=== PATIENT | female | born 1960 | race Caucasian/White ===

== ENCOUNTER 2025-02-03 10:16 | Observation (INO) ==
[2025-02-03 10:51] VITALS: BMI 31.7
--- NOTE | 2025-02-03 11:26 | DR.AMS ---
HPI Time Seen Time Seen by Provider: 02/03/25 11:23 PCP Primary Care Physician: Suman Complaint Cheif Complaint Doctors Comments: 64 yo F, hx of metastatic breast CA, c/o increasing weakness and confusion over the past couple weeks. Mother states that pt began having auditory hallucinations today. Pt c/o ongoing pain from her metastatic cancer which has spread from her breasts to her bones. Denies fever. Admits to increased urinary frequency and incontinence over the past 2 wk. Denies other complaints. Chief Complaint:: On arrival to triage, pt is emotional and crying, she presents in WC but is able to stand onto scale from WC. Pt c/o "somebody trying to do something to me without my permission; I believe my mom and my son are trying to have me put in a mental institution"; "my in August". Pt states "I am having nightmares; when I woke up this morning I thought it was tomorrow". She c/o epigastric and CP when she is eating/drinking. She states she has chronic bilat hip and low back pain r/t bone CA. Pt does have some difficulty finding her words when she is responding to questions. Pt mother states pt is "confused, incoherent, not following directions and is hearing voices". Pt denies she is hearing voices or having visual hallucinations, denies she feels suicidal or homicidal. Pt states she feels weak and it is causing her to "fall alot". Pt and mother state that pt is compliant with her medications Self Treatment fo Chief Complaint: Mother states she called PCP ofc and was advised to come to ER COVID-19 Coronavirus risk:travel/contact w/high risk person: No Has patient experienced Coronavirus symptoms: No Source History Provided: Patient and Parent Mode of Arrival Mode of Arrival: Wheelchair Timing Onset of Chief Complaint: 01/31/25 PMH PMH Past Medical History: Yes Past Medical History: Anxiety, Depression, Dyslipidemia and Hypertension Past Medical History Comment: bone cancer, seasonal allergies, fibromyalgia, OAB Past Surgical History: Yes Surgical History: Mastectomy and Ortho Surgery Past Surgical History Comment: bilat mastectomy Family History History of Family Medical Conditions: Yes Family Medical History: Cancer Social History Does any household member use tobacco: No Alcohol Use: Occasionally Do you use any recreational Drugs:: No Lives With: Family Lives Where: Home Travel Risk Coronavirus risk:travel/contact w/high risk person: No Has patient experienced Coronavirus symptoms: No Infectious screening In the last 2 months have you had wt loss of >10#?: NO Have you had fever, night sweats or hemotysis?: No Have you traveled outside the country in the last 6 months?: No Isolation: Standard ROS Review of Systems Constitutional: Weakness and Other (confusion, urinary incontinence) All Other Systems: Reviewed and Negative PE Vitals Vital Signs: Temp Pulse Resp BP Pulse Ox O2 Del Method 02/03/25 17:01 95 H 99 02/03/25 17:01 128/61 02/03/25 17:00 95 H 97 02/03/25 16:45 95 H 98 02/03/25 16:30 93 H 98 02/03/25 16:30 134/60 02/03/25 16:15 91 H 97 02/03/25 16:00 92 H 99 02/03/25 16:00 133/64 02/03/25 15:52 96 H 100 02/03/25 15:52 143/82 02/03/25 15:51 100 H 98 02/03/25 15:00 91 H 12 96 02/03/25 15:00 136/63 02/03/25 14:45 93 H 16 97 02/03/25 14:31 107/55 02/03/25 14:31 93 H 31 H 97 02/03/25 14:30 91 H 15 97 02/03/25 14:15 102 H 23 100 02/03/25 14:00 98 H 15 95 02/03/25 14:00 171/72 02/03/25 13:45 98 H 15 95 02/03/25 13:30 97 H 16 96 02/03/25 13:30 161/70 02/03/25 13:15 97 H 27 H 99 02/03/25 13:00 102 H 20 89 L 02/03/25 13:00 123/59 02/03/25 12:45 104 H 19 97 02/03/25 12:34 95 H 23 02/03/25 12:34 130/59 02/03/25 12:31 100 H 31 H 02/03/25 12:30 99 H 22 95 02/03/25 12:15 96 H 14 95 02/03/25 12:01 102 H 17 96 11/12/25 12:01 147/65 02/03/25 12:00 103 H 17 95 02/03/25 11:52 119 H 99 02/03/25 11:30 105 H 95 02/03/25 11:30 116/59 02/03/25 11:15 111 H 97 02/03/25 11:04 110 H 95 02/03/25 11:04 140/62 02/03/25 11:01 110 H 95 02/03/25 10:21 98.8 F 126 H 20 140/85 97 Room Air General Limitations: Language Barrier General Appearance: Alert Head Head Exam: Normal Inspection Eyes Eye exam: Normal Appearance ENT ENT Exam: Normal Exam External Ear Exam: Normal External Inspection Nose Exam: Normal Nose Exam Mouth Exam: Normal Inspection Throat Exam: Normal Inspection Neck Neck Exam: Normal Inspection Chest Chest Inspection: Normal Inspection Respiratory Respiratory Exam: Normal Lung Sounds Bilat Cardiovascular Cardiovascular Exam: Regular Rate and Normal Rhythm Abdominal Exam Abdominal Exam: Normal Inspection, Normal Bowel Sounds and Soft Extremities Extremities Exam: Normal Inspection Back Back Exam: Normal Inspection Neurological Neurological Exam: Alert and Oriented X3 Psychological Psychiatric Exam: Normal Affect and Normal Mood Skin Skin Exam: Warm, Dry, Intact and Normal Color ROR Labs Reviewed 02/03/25 11:37 02/03/25 11:37 Laboratory: WBC 7.7 X10^3/uL (3.6-10.0) 02/03/25 11:37 RBC 3.27 X10^6/uL (3.5-5.4) L 02/03/25 11:37 Hgb 10.5 g/dL (12.0-16.0) L 02/03/25 11:37 Hct 31.6 % (36.0-47.0) L 02/03/25 11:37 MCV 96.4 fL (80.0-100.0) 02/03/25 11:37 MCH 32.1 pg (27.0-34.0) 02/03/25 11:37 MCHC 33.3 g/dL (33.0-35.0) 02/03/25 11:37 RDW 15.5 % (11.6-16.5) 02/03/25 11:37 Plt Count 156 X10^3/uL (150.0-450.0) 02/03/25 11:37 MPV 8.5 fL (7.4-11.0) 02/03/25 11:37 Neut % (Auto) 81.9 % (42.0-75.0) H 02/03/25 11:37 Lymph % (Auto) 6.4 % (21.0-51.0) L 02/03/25 11:37 [place] % (Auto) 7.3 % (0.0-13.0) 02/03/25 11:37 Eos % (Auto) 4.0 % (0.9-2.9) H 02/03/25 11:37 Baso % (Auto) 0.4 % (0.2-1.0) 02/03/25 11:37 Neut # (Auto) 6.3 x10^3/uL (2.2-4.8) H 02/03/25 11:37 Lymph # (Auto) 0.5 X10^3/uL (1.3-2.9) L 02/03/25 11:37 [place] # (Auto) 0.6 x10^3/uL (0.3-0.8) 02/03/25 11:37 Eos # (Auto) 0.3 x10^3/uL (0.0-0.2) H 02/03/25 11:37 Baso # (Auto) 0.0 X10^3/uL (0.0-0.1) 02/03/25 11:37 Absolute Nucleated RBC 0.1 /100WBC 02/03/25 11:37 PT 15.0 SECONDS (11.8-14.3) 02/03/25 11:37 INR Target Range - 02/03/25 11:37 INR 1.17 (0.8-1.3) 02/03/25 11:37 APTT 37.3 SECONDS (22.9-36.5) H 02/03/25 11:37 PTT Comment - 02/03/25 11:37 Sodium 142 mmol/L (136-145) 02/03/25 11:37 Corrected Sodium TNP 02/03/25 11:37 Potassium 2.9 mmol/L (3.5-5.1) L* 02/03/25 11:37 Chloride 107 mmol/L (98-107) 02/03/25 11:37 Carbon Dioxide 25.9 mmol/L (21-32) 02/03/25 11:37 BUN 16 mg/dL (7-18) 02/03/25 11:37 Creatinine 2.02 mg/dL (0.55-1.02) H 02/03/25 11:37 Est GFR (MDRD) Af Amer 32 (>60) L 02/03/25 11:37 Est GFR (MDRD) Non-Af 26 (>60) L 02/03/25 11:37 Glucose 83 mg/dL (65-99) 02/03/25 11:37 Lactic Acid 0.8 mmol/L (0.4-2.0) 02/03/25 11:37 Calcium 8.7 mg/dL (8.5-10.1) 02/03/25 11:37 Corrected Calcium 9.7 mg/dL (8.5-10.1) 02/03/25 11:37 Magnesium 1.8 mg/dL (2.0-2.9) L 02/03/25 11:37 Total Bilirubin 1.00 mg/dL (0.2-1.0) 02/03/25 11:37 AST 35 Units/L (15-37) 02/03/25 11:37 ALT 20 Units/L (12-78) 02/03/25 11:37 Alkaline Phosphatase 87 Units/L (46-116) 02/03/25 11:37 Creatine Kinase 321 Units/L (26-192) H 02/03/25 11:37 Troponin I High Sens 6.3 ng/L (4.0-60.0) 02/03/25 11:37 Total Protein 6.6 g/dL (6.4-8.2) 02/03/25 11:37 Albumin 2.7 g/dL (3.4-5.0) L 02/03/25 11:37 Globulin 3.9 g/dL (2.5-4.5) 02/03/25 11:37 Albumin/Globulin Ratio 0.7 Ratio (1.1-2.1) L 02/03/25 11:37 Specimen Type Clean catch urine 02/03/25 11:54 Urine Color Pale yellow (YELLOW) 02/03/25 11:54 Urine Appearance Clear (CLEAR) 02/03/25 11:54 Urine pH 7.0 (5.0 - 8.0) 02/03/25 11:54 Ur Specific [place] 1.015 (1.000-1.030) 02/03/25 11:54 Urine Protein 3+ (NEGATIVE) 02/03/25 11:54 Urine Glucose (UA) 1+ (NEGATIVE) 02/03/25 11:54 Urine Ketones 2+ (NEGATIVE) 02/03/25 11:54 Urine Blood 4+ (NEGATIVE) 02/03/25 11:54 Urine Nitrite Negative (NEGATIVE) 02/03/25 11:54 Urine Bilirubin Negative (NEGATIVE) 02/03/25 11:54 Urine Urobilinogen Normal (NORMAL) 02/03/25 11:54 Ur Leukocyte Esterase Negative (NEGATIVE) 02/03/25 11:54 Urine RBC 0-2 /HPF (0-3) 02/03/25 11:54 Urine WBC 0-2 /HPF (0-5) 02/03/25 11:54 Ur Squamous Epith Cells Few /HPF (NEGATIVE) 02/03/25 11:54 Urine Bacteria Trace /HPF (NEGATIVE) 02/03/25 11:54 Urine Mucus Rare /HPF (NEGATIVE) 02/03/25 11:54 Ur Culture Indicated? No/not indicated 02/03/25 11:54 SARS-CoV-2 (PCR) Negative (NEGATIVE) 02/03/25 11:28 Influenza Type A (PCR) Negative (NEGATIVE) 02/03/25 11:28 Influenza Type B (PCR) Negative (NEGATIVE) 02/03/25 11:28 RSV (PCR) Negative (NEGATIVE) 02/03/25 11:28 Opioid Opioid Risk Tool Age (Ye box if 16-45): No History of Preadolescent Sexual Abuse: No Total: 0 Total Score Risk Category: Low Risk Copyright: Lei CARROLL predicting aberrant behaviors Discharge Plan Diagnosis Discharge Problem: PAUL (acute kidney injury), Acute dehydration, Acute hypokalemia, CAP (community acquired pneumonia), Breast cancer metastasized to bone, Hematuria, Biliary colic, Esophagitis Discharge Plan Patient Disposition: 09 ADMITTED INPATIENT Condition: Stable Prescriptions: No Action tizanidine 4 mg tablet 4 mg PO BID lorazepam 1 mg tablet 1 tab PO BID duloxetine 60 mg capsule,delayed release(DR/EC) 120 mg PO QDAY celecoxib 200 mg capsule 200 mg PO BID doxycycline hyclate 100 mg capsule 100 mg PO BID Rx Instructions: x 14 days - started on 01/22/25 cetirizine 10 mg tablet 10 mg PO QDAY morphine 30 mg tablet extended release 30 mg PO TID oxycodone-acetaminophen 10-325 mg tablet 1 tab PO QID PRN zolpidem 12.5 mg tablet,ext release multiphase 12.5 mg PO QPM PRN quetiapine 400 mg tablet extended release 24 hr 400 mg PO QPM Health Concerns: Post Hospitalization: new medications and changes needed to prevent readmission or further decline. Pt educated and given instructions on all concerns. Plan of Treatment: Continue with present treatment and follow up plan. Pt is to keep follow up appointment as instructed and take medications as ordered. Orders to Discharge Patient Discharge Orders: Transfer (Routine); Ordered 02/03/25 Ordered By: Rubén Darling Follow ups/Referrals Follow ups/Referrals: Trent Will [Primary Care Provider, MEDICAL] - 3 days Instructions Stand Alone Forms: Find Help Web Site, Post Hospital Follow Up Care Print Language: MAORI
[2025-02-03 11:54] LABS: MEAN PLATELET VOLUME 8.5 fL (7.4-11.0); RED CELL DISTRIBUTION WIDTH 15.5 % (11.6-16.5)
[2025-02-03 11:58] LABS: INR 1.17 (0.8-1.3)
[2025-02-03 12:01] LABS: BLOOD/HEMOGLOBIN,URINE 4+ (NEGATIVE); LEUKOCYTE ESTERASE ,URINE NEGATIVE (NEGATIVE); NITRITES,URINE NEGATIVE (NEGATIVE)
[2025-02-03 12:02] LABS: APPEARANCE,URINE CLEAR (CLEAR)
--- NOTE | 2025-02-03 12:06 | EKG ---
Test Reason : Weakness Blood Pressure : */* mmHG Vent. Rate : 101 BPM Atrial Rate : 101 BPM P-R Int : 158 ms QRS Dur : 78 ms QT Int : 326 ms P-R-T Axes : 49 20 41 degrees QTc Int : 422 ms Sinus tachycardia Cannot rule out Anterior infarct , age undetermined Abnormal ECG No previous ECGs available Confirmed by Eric Sylvester MD ([id number]) on 02/04/2025 5:50:04 AM Referred By: Confirmed By: Eric Sylvester MD
[2025-02-03 12:08] LABS: SQUAMOUS EPITHELIAL CELL,UR FEW /HPF (NEGATIVE)
[2025-02-03 12:17] LABS: COR CA(FOR HYPOALB) 9.7 mg/dL (8.5-10.1); CREATININE 2.02 mg/dL (0.55-1.02); eGFR NON BLACK RACES 26 (>60)
[2025-02-03] MEDS: NS 1,000 ML IV 1,000 ML IV ONE (12:58)
--- NOTE | 2025-02-03 13:01 | CT ---
EXAM: BRAIN W/O CON HISTORY: AMS; Altered mental status COMPARISON: None available. TECHNIQUE: Multiple helical images of the brain from the vertex to the occiput were obtained. Coronal and sagittal reformats were performed. Dose reduction techniques including Automated Exposure Control (AEC) and adjustment of mA and kV were utilized. FINDINGS: No acute intraparenchymal hemorrhage or cytotoxic edema is identified. No extra-axial fluid collections are seen. No alteration in the attenuation of the brain parenchyma can be identified to suggest acute or subacute ischemic change. However, if the patients symptoms are clinically & neurologically concerning for an acute ischemic event, then MR imaging of the brain with DWI sequencing could be considered to exclude an acute CVA (based on this patient's clinical presentation and the specific medical circumstances). Also, if there remains strong concern for an intracranial neoplasm or mass, then follow-up with CT or MR imaging of the brain with IV contrast is recommended for improved inspection (which would be more sensitive for the assessment of any intracranial neoplasia). The ventricular system is symmetric and nondilated. The extracranial structures are grossly unremarkable. The visualized paranasal sinuses and mastoid air cells are relatively clear on this examination as well. IMPRESSION: Negative Head CT Exam. THIS IS AN ELECTRONICALLY VERIFIED FINAL REPORT 02/03/2025 12:58 PM - Electronically signed by Aleksander Cooper MD
--- NOTE | 2025-02-03 13:10 | CT ---
EXAMINATION: CHEST W/O CON HISTORY: CHEST PAIN ; COMPARISON: None. TECHNIQUE: Contiguous noncontrast axial CT images of the thorax. Images reviewed in the axial imaging plane with reformatted sagittal and coronal images.The above CT scan was done with automated exposure control and the mA and kV was adjusted to obtain quality images according to patient size. FINDINGS: The lungs are expanded. Patchy alveolar infiltrate left lower lobe with trace left pleural effusion. The central airways are patent. Details of the mediastinum/vascular structures are limited since intravenous contrast was not used. Heart size within normal range. Mild fusiform shaped ectasia ascending thoracic aorta 3.9 cm diameter. Main pulmonary outflow trunk measures 2.7 cm diameter. No pericardial effusion. No mediastinal or hilar adenopathy. Nonspecific minimal distention of the mid through distal thoracic esophagus containing fluid with slight thickening of the carter of the thoracic esophagus. Images through the upper abdomen demonstrate fatty infiltration of the visualized liver having density measurements of 17 Hounsfield units. There is a 1.9 by 2.3 x 2 cm mass along the lumen of the gallbladder which may be further assessed with a biliary ultrasound. Diffuse heterogeneous bony sclerotic changes of the thoracic spine, sternum, and ribs. Areas of radiolucencies scattered throughout the spine. Consider bone marrow infiltrative process, potential metastatic disease of an unknown primary source. Partially imaged bilateral breast augmentation implants. IMPRESSION: Patchy alveolar infiltrate left lower lobe of the chest with trace left pleural effusion. Nonspecific diffuse heterogeneous bony sclerotic changes of the visualized osseous structures with scattered areas of radiolucency within the osseous structures. Consider bone marrow infiltrative process, potential metastatic disease of an unknown primary source. Findings may be followed up with a whole-body nuclear medicine bone scan. Mild fusiform shaped ectasia ascending thoracic aorta 3.9 cm diameter. Possible biliary disease within the gallbladder. Recommend follow-up biliary ultrasound. Nonspecific minimal distention of the mid through distal thoracic esophagus containing fluid with slight thickening of the carter of the thoracic esophagus The imaged liver demonstrates diffuse fatty infiltration. THIS IS AN ELECTRONICALLY VERIFIED FINAL REPORT 02/03/2025 1:07 PM - Electronically signed by Gisselle Farnsworth MD
[2025-02-03] MEDS: ZITHROMAX INJ 500 MG VIAL 500 MG in NS 250 ML IV 250 ML IV SCH (14:15)
--- NOTE | 2025-02-03 15:54 | US ---
EXAMINATION: GALL BLADDER HISTORY: GB mass on CT; GB MASS ON CT . COMPARISON STUDY: CT chest 02/03/2025 TECHNIQUE: Right upper quadrant ultrasound was performed. FINDINGS: Liver:Fatty liver is noted. The liver measures 12.7 cm in greatest dimension. Hepato pedal flow in the portal vein. Hepatic venous and arterial waveforms are unremarkable. GB/Jan:Gallstones. Sludge in the gallbladder. No wall thickening, pericholecystic fluid or sonographic Hudson's sign is seen. Common bile duct measures 3 mm. Wall thickness 2.3 mm. Pancreas:Obscured by bowel gas IVC:Unremarkable. Other: No free fluid. Rt kidney:10.1 x 5.3 x 5.5 cm. Resistive index 0.75. Cortical thickness 1.1 cm.. No hydronephrosis or solid-appearing lesion.. IMPRESSION: No acute findings Cholelithiasis and sludge. No sonographic evidence for acute cholecystitis. No definite persistent mass is seen on ultrasound. THIS IS AN ELECTRONICALLY VERIFIED FINAL REPORT 02/03/2025 3:51 PM - Electronically signed by Andriy Li MD
[2025-02-03] MEDS: K-DUR TAB 20 MEQ PO SCH ×2 (16:05→21:28)
[2025-02-03] MEDS: LEVAQUIN PREMIX IV 500 MG 500 MG/100 ML BAG IV SCH (17:09)
[2025-02-03] MEDS ORDERED: NORCO 5/325 MG TAB PO PRN (19:20)
[2025-02-03] MEDS ORDERED: ZOLPIDEM 12.5 MG PO PRN (19:20)
[2025-02-03] MEDS ORDERED: TYLENOL 325 MG TAB PO PRN (19:20)
[2025-02-03] MEDS ORDERED: EXT PO PRN (19:20)
[2025-02-03] MEDS ORDERED: ULTRAM PO PRN (19:20)
[2025-02-03] MEDS ORDERED: ZOFRAN TAB 4 MG PO PRN (19:20)
[2025-02-03] MEDS ORDERED: MORPHINE SULFATE INJ 2 MG INJ IVP PRN (19:20)
[2025-02-03] MEDS ORDERED: ZOFRAN INJ 4 MG VIAL IVP PRN (19:20)
[2025-02-03] MEDS ORDERED: AMBIEN PO PRN (19:47)
[2025-02-03] MEDS: PULMICORT NEB TX 0.5 MG NEB SCH (20:47)
[2025-02-03] MEDS: DUONEB 0.5 MG/3 MG (3 mL) NEB SCH (20:47)
[2025-02-03] MEDS ORDERED: CELECOXIB 200 MG PO SCH (21:00)
[2025-02-03] MEDS: NS 1,000 ML IV 1,000 ML IV SCH (21:26)
[2025-02-03] MEDS: MAG-OX TAB PO SCH (21:27)
[2025-02-03] MEDS: COLACE CAP 100 MG PO SCH (21:27)
[2025-02-03] MEDS: CELEBREX PO SCH (21:27)
[2025-02-03] MEDS: ATIVAN TAB 1 MG PO SCH (21:28)
[2025-02-03] MEDS: M.S. CONTIN 30 MG EXTENDED RELEASE PO SCH (21:28)
[2025-02-03] MEDS: ZANAFLEX PO SCH (21:29)
[2025-02-04] MEDS: DUONEB 0.5 MG/3 MG (3 mL) NEB ONE (03:45)
[2025-02-04] MEDS: PULMICORT NEB TX 0.5 MG NEB ONE (03:45)
[2025-02-04 05:49] LABS: MEAN PLATELET VOLUME 8.3 fL (7.4-11.0); RED CELL DISTRIBUTION WIDTH 15.8 % (11.6-16.5)
[2025-02-04 06:11] LABS: COR CA(FOR HYPOALB) 9.6 mg/dL (8.5-10.1); CREATININE 1.77 mg/dL (0.55-1.02); eGFR NON BLACK RACES 31 (>60)
--- NOTE | 2025-02-04 06:30 | RAD ---
EXAM: CHEST, PA/LAT ADULT HISTORY: BENITO PNEUMONIA ; HTN, BONE CANCER SX: BENITO MASTECTOMY, ORTHO COMPARISON: None. TECHNIQUE: PA and lateral FINDINGS: Unremarkable cardiac silhouette. Low lung volumes. No focal consolidation, pleural effusion, or pneumothorax. IMPRESSION: No acute cardiopulmonary findings. THIS IS AN ELECTRONICALLY VERIFIED FINAL REPORT 02/04/2025 6:26 AM - Electronically signed by Juan Diego Camarena MD
[2025-02-04] MEDS ORDERED: CONSULT PHARMACY - POTASSIUM & MAGNESIUM XX SCH (07:00)
[2025-02-04] MEDS ORDERED: PERCOCET TAB 5/325 MG PO PRN (07:42)
[2025-02-04] MEDS: CONSULT PHARMACY - POTASSIUM & MAGNESIUM XX SCH (08:55)
[2025-02-04] MEDS ORDERED: ZITHROMAX INJ 500 MG VIAL IV ONE (09:24)
[2025-02-04] MEDS: CYMBALTA PO SCH (09:34)
[2025-02-04] MEDS: NS + KCL 20 MEQ/L 1,000 ML IV SCH (09:44)
[2025-02-04] MEDS ORDERED: K-DUR TAB 20 MEQ PO SCH (10:00)
[2025-02-04] MEDS ORDERED: ATIVAN TAB 0.5 MG PO PRN ×2 (10:22→21:00)
[2025-02-04] MEDS: MAG-OX TAB PO SCH (10:51)
--- NOTE | 2025-02-04 10:56 | DR.H&P ---
H&P History & Physical for Day of: H&P Date: 02/04/25 Chief Complaint Chief Complaint: Altered mental status cough History of Present Illness History of Present Illness: Patient is a 64 year old female with past medical history of metastatic breast cancer presenting with acute confusion yesterday. She reports that she was at an event yesterday and gradually became more confused in the evening. Per her mother she was having auditory hallucinations, weakness, and confusion. She denies fevers or chills. She does report having a cough. She is on multiple medications for pain and anxiety. She does admit to not eating yesterday as well. Labs/imaging: WBC 4.6, hemoglobin 8.7, platelets 147, sodium 146, potassium 2.8, creatinine 1.77, glucose 93, lactic acid 0.8, CK3 21, troponin negative, AIT pending, COVID/flu/RSV negative, UA negative. blood culture pending. Brain CT was negative. Chest CT did reveal patchy alveolar infiltrate in the left lower lobe. There was also possible biliary disease within the gallbladder. Ultrasound of the gallbladder showed cholelithiasis and sludge. No signs of acute cholecystitis. Chest x-ray this morning revealed no acute cardiopulmonary findings. Patient was admitted for altered mental status, polypharmacy, pneumonia, acute hyperkalemia, PAUL, and dehydration. Will continue with IV fluids. Will decrease Ativan dose that she takes at home by half. Replete electrolytes per protocol. Restart home medications. Continue IV antibiotics Levaquin. Otherwise continue with current treatment plan. Continue closely monitor and follow-up labs/imaging. Time spent for clinical assessment, reviewing labs/imaging, physical exam, decision making and documentation greater than 45 mins. Past Medical History Past Medical History: Anxiety, Depression, Dyslipidemia and Hypertension Past Surgical History Surgical History: Mastectomy and Ortho Surgery Family History Family Medical History: Hypertension Social History Type of Tobacco Use: None Does any household member use tobacco: No Alcohol Use: Occasionally Drug Use: None Medications Home Medications: Home Medications Medication Instructions Recorded Confirmed Type duloxetine 60 mg capsule,delayed 120 mg PO QDAY 02/03/25 History release lorazepam 1 mg tablet 1 tab PO BID 10/30/21 History tizanidine 4 mg tablet 4 mg PO BID 10/30/21 5 History celecoxib 200 mg capsule 200 mg PO BID 02/03/2502/03 History cetirizine 10 mg tablet 10 mg PO QDAY 02/03/2502/03 History doxycycline hyclate 100 mg capsule 100 mg PO BID 02/0302/03/25 History morphine 30 mg tablet,extended 30 mg PO TID 02/03/25 1 04/05/24 History release oxycodone-acetaminophen 10 mg-325 1 tab PO QID PRN 03/1802/03/25 History mg tablet quetiapine 400 mg tablet,extended 400 mg PO QPM 02/03/25 History release 24 hr zolpidem 12.5 mg tablet,extended 12.5 mg PO QPM PRN 02/03/25 History release,multiphase Allergies Allergies Allergy/AdvReac Type Severity Reaction Status Date / Time ceftriaxone (From [facility]) Allergy Verified 02/03/25 10:51 Penicillins Allergy Verified 02/03/25 10:51 Labs 02/04/25 05:25 02/04/25 05:25 Labs: Laboratory WBC 4.6 X10^3/uL (3.6-10.0) 02/04/25 05:25 RBC 2.68 X10^6/uL (3.5-5.4) L 02/04/25 05:25 Hgb 8.7 g/dL (12.0-16.0) L 02/04/25 05:25 Hct 25.5 % (36.0-47.0) L 02/04/25 05:25 MCV 95.4 fL (80.0-100.0) 02/04/25 05:25 MCH 32.4 pg (27.0-34.0) 02/04/25 05:25 MCHC 34.0 g/dL (33.0-35.0) 02/04/25 05:25 RDW 15.8 % (11.6-16.5) 02/04/25 05:25 Plt Count 147 X10^3/uL (150.0-450.0) L 02/04/25 05:25 MPV 8.3 fL (7.4-11.0) 02/04/25 05:25 Neut % (Auto) 65.0 % (42.0-75.0) 02/04/25 05:25 Lymph % (Auto) 17.5 % (21.0-51.0) L 02/04/25 05:25 [place] % (Auto) 10.9 % (0.0-13.0) 02/04/25 05:25 Eos % (Auto) 5.8 % (0.9-2.9) H 02/04/25 05:25 Baso % (Auto) 0.8 % (0.2-1.0) 02/04/25 05:25 Neut # (Auto) 3.0 x10^3/uL (2.2-4.8) 02/04/25 05:25 Lymph # (Auto) 0.8 X10^3/uL (1.3-2.9) L 02/04/25 05:25 [place] # (Auto) 0.5 x10^3/uL (0.3-0.8) 02/04/25 05:25 Eos # (Auto) 0.3 x10^3/uL (0.0-0.2) H 02/04/25 05:25 Baso # (Auto) 0.0 X10^3/uL (0.0-0.1) 02/04/25 05:25 Absolute Nucleated RBC 0.1 /100WBC 02/04/25 05:25 PT 15.0 SECONDS (11.8-14.3) 02/03/25 11:37 INR Target Range - 02/03/25 11:37 INR 1.17 (0.8-1.3) 02/03/25 11:37 APTT 37.3 SECONDS (22.9-36.5) H 02/03/25 11:37 PTT Comment - 02/03/25 11:37 Sodium 146 mmol/L (136-145) H 02/04/25 05:25 Corrected Sodium TNP 02/04/25 05:25 Potassium 2.8 mmol/L (3.5-5.1) L* 02/04/25 05:25 Chloride 114 mmol/L (98-107) H 02/04/25 05:25 Carbon Dioxide 21.7 mmol/L (21-32) 02/04/25 05:25 BUN 12 mg/dL (7-18) 02/04/25 05:25 Creatinine 1.77 mg/dL (0.55-1.02) H 02/04/25 05:25 Est GFR (MDRD) Af Amer 37 (>60) L 02/04/25 05:25 Est GFR (MDRD) Non-Af 31 (>60) L 02/04/25 05:25 Glucose 93 mg/dL (65-99) 02/04/25 05:25 Lactic Acid 0.8 mmol/L (0.4-2.0) 02/03/25 11:37 Calcium 8.2 mg/dL (8.5-10.1) L 02/04/25 05:25 Corrected Calcium 9.6 mg/dL (8.5-10.1) 02/04/25 05:25 Magnesium 1.9 mg/dL (2.0-2.9) L 02/04/25 05:25 Total Bilirubin 0.70 mg/dL (0.2-1.0) 02/04/25 05:25 AST 28 Units/L (15-37) 02/04/25 05:25 ALT 16 Units/L (12-78) 02/04/25 05:25 Alkaline Phosphatase 71 Units/L (46-116) 02/04/25 05:25 Creatine Kinase 321 Units/L (26-192) H 02/03/25 11:37 Troponin I High Sens 6.3 ng/L (4.0-60.0) 02/03/25 11:37 Total Protein 5.7 g/dL (6.4-8.2) L 02/04/25 05:25 Albumin 2.2 g/dL (3.4-5.0) L 02/04/25 05:25 Globulin 3.5 g/dL (2.5-4.5) 02/04/25 05:25 Albumin/Globulin Ratio 0.6 Ratio (1.1-2.1) L 02/04/25 05:25 Specimen Type Clean catch urine 02/03/25 11:54 Urine Color Pale yellow (YELLOW) 02/03/25 11:54 Urine Appearance Clear (CLEAR) 02/03/25 11:54 Urine pH 7.0 (5.0 - 8.0) 02/03/25 11:54 Ur Specific [place] 1.015 (1.000-1.030) 02/03/25 11:54 Urine Protein 3+ (NEGATIVE) 02/03/25 11:54 Urine Glucose (UA) 1+ (NEGATIVE) 02/03/25 11:54 Urine Ketones 2+ (NEGATIVE) 02/03/25 11:54 Urine Blood 4+ (NEGATIVE) 02/03/25 11:54 Urine Nitrite Negative (NEGATIVE) 02/03/25 11:54 Urine Bilirubin Negative (NEGATIVE) 02/03/25 11:54 Urine Urobilinogen Normal (NORMAL) 02/03/25 11:54 Ur Leukocyte Esterase Negative (NEGATIVE) 02/03/25 11:54 Urine RBC 0-2 /HPF (0-3) 02/03/25 11:54 Urine WBC 0-2 /HPF (0-5) 02/03/25 11:54 Ur Squamous Epith Cells Few /HPF (NEGATIVE) 02/03/25 11:54 Urine Bacteria Trace /HPF (NEGATIVE) 02/03/25 11:54 Urine Mucus Rare /HPF (NEGATIVE) 02/03/25 11:54 Ur Culture Indicated? No/not indicated 02/03/25 11:54 SARS-CoV-2 (PCR) Negative (NEGATIVE) 02/03/25 11:28 Influenza Type A (PCR) Negative (NEGATIVE) 02/03/25 11:28 Influenza Type B (PCR) Negative (NEGATIVE) 02/03/25 11:28 RSV (PCR) Negative (NEGATIVE) 02/03/25 11:28 Review of Systems Constitutional: Weakness Eyes: No Symptoms Reported ENT: No Symptoms Reported Respiratory: Cough Cardiovascular: No Symptoms Reported Gastrointestinal: Nausea Genitourinary: No Symptoms Reported Musculoskeletal: No Symptoms Reported Skin: No Symptoms Reported Neurological: No Symptoms Reported Physical Exam Vital Signs: Vital Signs Temperature 98.9 F Temperature 98.1 F Pulse Rate [Left Brachial] 83 Pulse Rate [Left Brachial] 72 Pulse Rate 101 Respiratory Rate 18 Respiratory Rate 18 Respiratory Rate 19 Blood Pressure [Left Arm] 102/51 Blood Pressure [Left Arm] 90/46 O2 Sat by Pulse Oximetry 97 O2 Sat by Pulse Oximetry 97 O2 Sat by Pulse Oximetry 100 O2 Sat by Pulse Oximetry 96 Oriented: Normal Eyes: Normal Ear: Normal Nose: Normal Throat: Normal Respiratory: Clear Throughout Cardiovascular: Normal : Normal Auscultation: Bowel Sounds: Normal Palpation: Normal Tenderness: Normal Skin: Normal Musculoskeletal: Normal Psychiatric: Normal Mood Description: Calm and Appropriate Affect: Normal Speech Pattern: Clear and Appropriate Assessment/Plan (1) Altered mental status: Qualifiers: Altered mental status type: unspecified Qualified Code(s): R41.82 - Altered mental status, unspecified Status: Acute (2) Polypharmacy: Status: Acute (3) Acute hypokalemia: Status: Acute (4) CAP (community acquired pneumonia): Qualifiers: Laterality: unspecified laterality Qualified Code(s): J18.9 - Pneumonia, unspecified organism Status: Acute (5) Breast cancer metastasized to bone: Qualifiers: Laterality: unspecified laterality Qualified Code(s): C50.919 - Malignant neoplasm of unspecified site of unspecified female breast; C79.51 - Secondary malignant neoplasm of bone Status: Acute (6) PAUL (acute kidney injury): Status: Acute (7) Acute dehydration: Status: Acute Review H&P Reviewed: Yes Patient was examined?: Yes
[2025-02-04] MEDS: PATIENT'S HOME MEDICATION PO SCH (23:01)
[2025-02-05 06:35] LABS: MEAN PLATELET VOLUME 8.6 fL (7.4-11.0); RED CELL DISTRIBUTION WIDTH 15.9 % (11.6-16.5)
[2025-02-05 06:36] LABS: COR CA(FOR HYPOALB) 9.8 mg/dL (8.5-10.1); CREATININE 1.62 mg/dL (0.55-1.02); eGFR NON BLACK RACES 34 (>60)
[2025-02-05 07:10] VITALS: RESP 18
[2025-02-05] MEDS: PATIENT'S HOME MEDICATION PO SCH (08:06)
[2025-02-05 11:38] VITALS: BP 97/50; PULSE 77; TEMP 97.9; O2SAT 96
== END 2025-02-05 12:00 | disposition home health service (06) ==
LOC: ER 10:21 → INTOOBSV 17:28 → MED/SURG 17:28
PROVIDERS: ADMIT Internal Medicine; ATTEND Internal Medicine
DX: J18.8 Other pneumonia, unspecified organism; R07.89 Other chest pain; R79.1 Abnormal coagulation profile; E78.5 Hyperlipidemia, unspecified; D64.89 Other specified anemias; R94.31 Abnormal electrocardiogram [ECG] [EKG]; E87.0 Hyperosmolality and hypernatremia; B95.1 Streptococcus, group B, as the cause of diseases classified elsewhere; K80.80 Other cholelithiasis without obstruction; Z74.1 Need for assistance with personal care; Z03.818 Encounter for observation for suspected exposure to other biological agents ruled out; R00.0 Tachycardia, unspecified; R44.0 Auditory hallucinations; E86.0 Dehydration; M79.7 Fibromyalgia; Z79.899 Other long term (current) drug therapy; I10 Essential (primary) hypertension; R79.89 Other specified abnormal findings of blood chemistry; J90 Pleural effusion, not elsewhere classified; C79.51 Secondary malignant neoplasm of bone; E87.6 Hypokalemia; R44.1 Visual hallucinations; C50.919 Malignant neoplasm of unspecified site of unspecified female breast; R94.4 Abnormal results of kidney function studies; R41.82 Altered mental status, unspecified; Z16.29 Resistance to other single specified antibiotic; R53.1 Weakness; F32.89 Other specified depressive episodes; E83.42 Hypomagnesemia; F41.8 Other specified anxiety disorders; N17.8 Other acute kidney failure; E83.51 Hypocalcemia

== ENCOUNTER 2025-02-12 15:11 | Inpatient (IN) ==
[2025-02-12] MEDS ORDERED: NARCAN INJ ONE (15:24)
[2025-02-12] MEDS ORDERED: ZOFRAN INJ 4 MG VIAL ONE (15:24)
[2025-02-12] MEDS: ZOFRAN INJ 4 MG VIAL IVP ONE (15:26)
[2025-02-12] MEDS: NARCAN INJ IVP ONE (15:27)
--- NOTE | 2025-02-12 15:28 | EKG ---
Test Reason : ams Blood Pressure : */* mmHG Vent. Rate : 118 BPM Atrial Rate : 118 BPM P-R Int : 146 ms QRS Dur : 72 ms QT Int : 350 ms P-R-T Axes : 17 5 34 degrees QTc Int : 490 ms Sinus tachycardia Cannot rule out Anterior infarct (cited on or before 03-FEB-2025) T wave abnormality, consider inferior ischemia Abnormal ECG When compared with ECG of 03-FEB-2025 12:04, No significant change was found Confirmed by Eric Sylvester MD ([id number]) on 02/13/2025 5:59:08 AM Referred By: Confirmed By: Eric Sylvester MD
--- NOTE | 2025-02-12 15:42 | DR.AMS ---
HPI Time Seen Time Seen by Provider: 02/12/25 15:41 PCP Primary Care Physician: Dr. Will Complaint Cheif Complaint Doctors Comments: This patient had altered mental status at home most probably due to taking too much of either opiates and benzodiazepine.Does have cancer and she is taking that medicine for anxiety and for chronic pain. Chief Complaint:: Pt's mother reports that since yesterday she has had progressively worsening AMS with visual hallucinations reaching our for things that are not there. Pt is alert to person and place. Pt's mother states that to her knowledge the pt has not taken any more of her medication that she normally dose. Source History Provided: EMS Timing Onset of Chief Complaint: 02/11/25 PMH PMH Past Medical History: Yes Past Medical History: Anxiety, Depression, Dyslipidemia and Hypertension Past Medical History Comment: bone cancer,breast cancer, fibromyalgia, overactive bladder Past Surgical History: Yes Surgical History: Mastectomy and Ortho Surgery Past Surgical History Comment: bilateral mastectomy Family History History of Family Medical Conditions: Yes Family Medical History: Cancer Social History Does patient currently use any type of tobacco product: No Have you used tobacco products in the last 12 months: No Type of Tobacco Use: None Does any household member use tobacco: No Alcohol Use: None Do you use any recreational Drugs:: No Lives With: Mom Lives Where: Home Infectious screening In the last 2 months have you had wt loss of >10#?: NO Have you had fever, night sweats or hemotysis?: No Have you traveled outside the country in the last 6 months?: No Isolation: Standard ROS Review of Systems Constitutional: Weakness and Other (change in mental status) Eyes: No Symptoms Reported ENTM: No Symptoms Reported Respiratoy: No Symptoms Reported Cardiovascular: No Symptoms Reported Gastrointestinal/Abdominal: No Symptoms Reported Genitourinary: No Symptoms Reported Neurological: Weakness Musculoskeletal: Muscle Pain Integumentary: No Symptoms Reported Hematologic/Lymphatic: No Symptoms Reported Endocrine: No Symptoms Reported Psychiatric: Depression All Other Systems: Reviewed and Negative PE Vitals Vital Signs: Temp Pulse Resp BP Pulse Ox O2 Del Method 02/12/25 23:30 118 H 16 99 02/12/25 23:30 167/66 02/12/25 23:15 170/75 02/12/25 23:15 118 H 16 99 02/12/25 23:00 122 H 18 100 02/12/25 23:00 159/70 02/12/25 22:46 120 H 17 99 02/12/25 22:46 97/46 02/12/25 22:45 120 H 17 100 02/12/25 22:30 120 H 17 93 L 02/12/25 22:16 119 H 17 99 02/12/25 22:16 91/38 02/12/25 22:15 120 H 17 100 02/12/25 22:02 122/55 02/12/25 22:02 122 H 17 100 02/12/25 22:00 122 H 16 100 02/12/25 21:45 171/72 02/12/25 21:45 122 H 19 100 02/12/25 21:30 121 H 16 100 02/12/25 21:30 143/65 02/12/25 21:15 124 H 18 100 02/12/25 21:15 146/63 02/12/25 21:01 122 H 18 100 02/12/25 21:01 163/74 02/12/25 21:00 122 H 17 100 02/12/25 20:46 124 H 16 100 02/12/25 20:46 157/62 02/12/25 20:45 124 H 17 100 02/12/25 20:30 123 H 17 100 02/12/25 20:30 146/65 02/12/25 20:15 145/61 02/12/25 20:15 123 H 20 100 02/12/25 20:00 124 H 17 100 02/12/25 20:00 150/66 02/12/25 19:45 123 H 20 100 02/12/25 19:45 147/69 02/12/25 19:31 123 H 19 100 02/12/25 19:31 134/95 02/12/25 19:30 123 H 21 100 02/12/25 19:15 124 H 20 92 L 02/12/25 19:15 123/72 02/12/25 19:00 124 H 24 85 L 02/12/25 19:00 125/70 02/12/25 18:45 138/65 02/12/25 18:45 124 H 17 91 L 02/12/25 18:30 142/63 02/12/25 18:30 124 H 23 89 L 02/12/25 18:15 125 H 20 90 L 02/12/25 18:15 141/58 02/12/25 18:00 129 H 24 99 02/12/25 18:00 137/57 02/12/25 17:45 130 H 34 H 100 02/12/25 17:45 136/64 02/12/25 17:31 130 H 29 H 99 02/12/25 17:31 143/70 02/12/25 17:30 132 H 29 H 98 02/12/25 17:15 133 H 36 H 99 02/12/25 17:15 107/64 02/12/25 17:05 130/72 02/12/25 17:05 133 H 29 H 98 02/12/25 17:00 133 H 98 02/12/25 16:45 137 H 96 02/12/25 16:30 137 H 02/12/25 16:15 137 H 94 L 02/12/25 16:00 135 H 02/12/25 15:51 134 H 02/12/25 15:34 98.0 F 122 H 20 134/62 98 Room Air 02/12/25 15:31 129 H 99 02/12/25 15:31 151/57 02/12/25 15:30 127 H 02/12/25 15:23 119 H 13 97 General Limitations: Physical Limitation (due tolethargy and change in mental status) General Appearance: Lethargic Head Head Exam: Normal Inspection Eyes Eye exam: Normal Appearance and PERRL ENT ENT Exam: Normal Exam External Ear Exam: Normal External Inspection TM/Canal Exam: Bilateral: Normal Nose Exam: Normal Nose Exam Mouth Exam: Normal Inspection Throat Exam: Normal Inspection Neck Neck Exam: Normal Inspection Chest Chest Inspection: Normal Inspection Respiratory Respiratory Exam: Normal Lung Sounds Bilat Cardiovascular Cardiovascular Exam: Regular Rate Abdominal Exam Abdominal Exam: Normal Inspection Neurological Neurological Exam: Motor Sensory Deficit Patient Oriented To: Person and Place Motor Strength - LUE: 2/5 Motor Strength - RUE: 2/5 Motor Strength - LLE: 2/5 Motor Strength - RLE: 2/5 Psychological Psychiatric Exam: Flat Affect Skin Skin Exam: Warm, Dry and Intact MDM Differential Diagnosis Metabolic: Dehydration and Hypernatremia Structural: Mass Lesion Toxicologic: Drug Overdose and Medication Toxicity Infectious: UTI COURSE Treatment Treatment: Patient made relatively stable during the ER evaluation. We did give her Narcan 2 mg IV for her lethargy and change in mental status and the patient did became very much more alert. She actually to the point a little bit more agitation after she got the Narcan.Her altered mental status became much more improved after the Narcan. We did do metabolic panel on the patient and her sodium was elevated at 155 and her potassium was 2.6 the patient was admitted to the hospital about 2 weeks ago in which her potassium also was low. We did the the BUN and creatinine here was BUN was 23 creatinine was 3.57 blood sugar was 117 her GFR today was 14 about 2 weeks ago it was 30.Did do a UDS and it was positive for opiates. She did a urinalysis which showed just 3+ protein 3+ glucose and 5+ blood.Patient had a CT scan of the brain that showed no intracranial bleed there was some small vessel disease there was no mass effect.This patient does have a history of lung cancer but with these numbers here in the same like acute on chronic renal insufficiency we will talk with Dr. Cuevas about this patient and we are going to admit the patient to observation he did say we will set the patient for further evaluation for Dr. Adan.Patient's family was not notified of the intent to admit and was agreeable to the admission. ROR Labs Reviewed Laboratory Results Reviewed?: Yes 02/12/25 15:40 02/12/25 15:40 Laboratory: WBC 10.4 X10^3/uL (3.6-10.0) H 02/12/25 15:40 RBC 3.57 X10^6/uL (3.5-5.4) 02/12/25 15:40 Hgb 11.3 g/dL (12.0-16.0) L 02/12/25 15:40 Hct 34.2 % (36.0-47.0) L 02/12/25 15:40 MCV 95.8 fL (80.0-100.0) 02/12/25 15:40 MCH 31.7 pg (27.0-34.0) 02/12/25 15:40 MCHC 33.1 g/dL (33.0-35.0) 02/12/25 15:40 RDW 16.6 % (11.6-16.5) H 02/12/25 15:40 Plt Count 346 X10^3/uL (150.0-450.0) 02/12/25 15:40 MPV 8.3 fL (7.4-11.0) 02/12/25 15:40 Neut % (Auto) 78.9 % (42.0-75.0) H 02/12/25 15:40 Lymph % (Auto) 11.3 % (21.0-51.0) L 02/12/25 15:40 [place] % (Auto) 8.0 % (0.0-13.0) 02/12/25 15:40 Eos % (Auto) 0.7 % (0.9-2.9) L 02/12/25 15:40 Baso % (Auto) 1.1 % (0.2-1.0) H 02/12/25 15:40 Neut # (Auto) 8.2 x10^3/uL (2.2-4.8) H 02/12/25 15:40 Lymph # (Auto) 1.2 X10^3/uL (1.3-2.9) L 02/12/25 15:40 [place] # (Auto) 0.8 x10^3/uL (0.3-0.8) 02/12/25 15:40 Eos # (Auto) 0.1 x10^3/uL (0.0-0.2) 02/12/25 15:40 Baso # (Auto) 0.1 X10^3/uL (0.0-0.1) 02/12/25 15:40 Absolute Nucleated RBC 0.1 /100WBC 02/12/25 15:40 Sodium 155 mmol/L (136-145) H* 02/12/25 15:40 Corrected Sodium 157 mmol/L (136-145) H 02/12/25 15:40 Potassium 2.6 mmol/L (3.5-5.1) L* 02/12/25 15:40 Chloride 119 mmol/L (98-107) H* 02/12/25 15:40 Carbon Dioxide 22.1 mmol/L (21-32) 02/12/25 15:40 BUN 23 mg/dL (7-18) H 02/12/25 15:40 Creatinine 3.57 mg/dL (0.55-1.02) H 02/12/25 15:40 Est GFR (MDRD) Af Amer 17 (>60) L 02/12/25 15:40 Est GFR (MDRD) Non-Af 14 (>60) L 02/12/25 15:40 Glucose 177 mg/dL (65-99) H 02/12/25 15:40 Calcium 10.0 mg/dL (8.5-10.1) 02/12/25 15:40 Corrected Calcium 11.0 mg/dL (8.5-10.1) H 02/12/25 15:40 Total Bilirubin 0.70 mg/dL (0.2-1.0) 02/12/25 15:40 AST 43 Units/L (15-37) H 02/12/25 15:40 ALT 40 Units/L (12-78) 02/12/25 15:40 Alkaline Phosphatase 93 Units/L (46-116) 02/12/25 15:40 Creatine Kinase 257 Units/L (26-192) H 02/12/25 15:40 Troponin I High Sens 9.0 ng/L (4.0-60.0) 02/12/25 15:40 Total Protein 7.5 g/dL (6.4-8.2) 02/12/25 15:40 Albumin 2.7 g/dL (3.4-5.0) L 02/12/25 15:40 Globulin 4.8 g/dL (2.5-4.5) H 02/12/25 15:40 Albumin/Globulin Ratio 0.6 Ratio (1.1-2.1) L 02/12/25 15:40 Specimen Type Catherized urine 02/12/25 16:05 Urine Color Yellow (YELLOW) 02/12/25 16:05 Urine Appearance Clear (CLEAR) 02/12/25 16:05 Urine pH 6.0 (5.0 - 8.0) 02/12/25 16:05 Ur Specific [place] 1.020 (1.000-1.030) 02/12/25 16:05 Urine Protein 3+ (NEGATIVE) 02/12/25 16:05 Urine Glucose (UA) 3+ (NEGATIVE) 02/12/25 16:05 Urine Ketones Negative (NEGATIVE) 02/12/25 16:05 Urine Blood 5+ (NEGATIVE) 02/12/25 16:05 Urine Nitrite Negative (NEGATIVE) 02/12/25 16:05 Urine Bilirubin Negative (NEGATIVE) 02/12/25 16:05 Urine Urobilinogen Normal (NORMAL) 02/12/25 16:05 Ur Leukocyte Esterase Negative (NEGATIVE) 02/12/25 16:05 Urine RBC None seen /HPF (0-3) 02/12/25 16:05 Urine WBC None seen /HPF (0-5) 02/12/25 16:05 Ur Squamous Epith Cells Rare /HPF (NEGATIVE) 02/12/25 16:05 Amorphous Sediment Trace /HPF (NEGATIVE) 02/12/25 16:05 Urine Bacteria Trace /HPF (NEGATIVE) 02/12/25 16:05 Ur Culture Indicated? No/not indicated 02/12/25 16:05 Urine Opiates Screen Positive (NEG=<300) A 02/12/25 16:05 Urine Methadone Screen Negative (NEG=<300) 02/12/25 16:05 Ur Barbiturates Screen Negative (NEG=<200) 02/12/25 16:05 Ur Phencyclidine Scrn Negative (NEG=<25) 02/12/25 16:05 Ur Amphetamines Screen Negative (NEG=<1000) 02/12/25 16:05 U Benzodiazepines Scrn Negative (NEG=<200) 02/12/25 16:05 Urine Cocaine Screen Negative (NEG=<300) 02/12/25 16:05 U Marijuana (THC) Screen Negative (NEG=<50) 02/12/25 16:05 Opioid Opioid Risk Tool Age (Ye box if 16-45): No History of Preadolescent Sexual Abuse: No Total: 0 Total Score Risk Category: Low Risk Copyright: Lei CARROLL predicting aberrant behaviors Discharge Plan Diagnosis Discharge Problem: Accidental drug overdose, Acute on chronic renal insufficiency, Chronic hypokalemia Discharge Plan Patient Disposition: 09 ADMITTED INPATIENT Condition: Stable Prescriptions: No Action celecoxib 200 mg capsule 200 mg PO BID cetirizine 10 mg tablet 10 mg PO QDAY oxybutynin chloride 10 mg tablet extended release 24hr 10 mg PO QDAY tizanidine 4 mg tablet 4 mg PO BID morphine 30 mg tablet extended release 30 mg PO TID oxycodone-acetaminophen 10-325 mg tablet 1 tab PO QID PRN promethazine 25 mg tablet 25 mg PO Q8H PRN lorazepam 1 mg tablet 1 mg PO BID duloxetine 60 mg capsule,delayed release(DR/EC) 120 mg PO QDAY zolpidem 12.5 mg tablet,ext release multiphase 12.5 mg PO QPM PRN quetiapine 400 mg tablet extended release 24 hr 400 mg PO QPM Verzenio 150 mg tablet 150 mg PO QDAY Health Concerns: Post Hospitalization: new medications and changes needed to prevent readmission or further decline. Pt educated and given instructions on all concerns. Plan of Treatment: Continue with present treatment and follow up plan. Pt is to keep follow up appointment as instructed and take medications as ordered. Orders to Discharge Patient Discharge Orders: Transfer (Routine); Ordered 02/12/25 Ordered By: Ezekiel Gerard Follow ups/Referrals Follow ups/Referrals: [facility],None [Primary Care Provider] - 3 days Instructions Stand Alone Forms: Find Help Web Site, Post Hospital Follow Up Care Print Language: SWEDISH
[2025-02-12 15:50] LABS: MEAN PLATELET VOLUME 8.3 fL (7.4-11.0); RED CELL DISTRIBUTION WIDTH 16.6 % (11.6-16.5)
[2025-02-12 16:05] LABS: COR CA(FOR HYPOALB) 11.0 mg/dL (8.5-10.1); CREATININE 3.57 mg/dL (0.55-1.02); eGFR NON BLACK RACES 14.0 (>60)
[2025-02-12 16:09] LABS: COR NA(FOR HYPERGLY) 157.0 mmol/L (136-145)
--- NOTE | 2025-02-12 16:09 | CT ---
EXAM: CT HEAD WITHOUT IV CONTRAST HISTORY: Confusion COMPARISON: 01/23 TECHNIQUE: Axial images were acquired of the head without IV contrast. Coronal and sagittal images were provided. All images were reviewed in a variety of windows and levels. LIMITATIONS: Please note that CT has low sensitivity and accuracy for identifying acute infarction. In addition, there are portions of the brain that are affected by beam hardening artifact which further greatly limits identification of an acute infarct. RADIATION REDUCTION TECHNIQUE: Automated exposure control, Adjustment of the mA and/or kV according to patient size, or iterative reconstruction techniques were used. FINDINGS: There is diffuse cerebral atrophy with a regional distribution of low attenuation along the periventricular white matter most likely representing small vessel ischemic changes which are to a degree that would be considered within normal limits for the patient's stated age. There is no evidence of an acute intracranial bleed. There is no evidence of a mass or midline shift. There is no evidence of an extra-axial fluid collection. The mitchell-white matter differentiation is within normal limits. The visualized bones are unremarkable. The visualized sinuses are clear. The mastoid air cells are well-aerated. IMPRESSION: 1. INVOLUTIONAL CHANGES ARE PRESENT WITH FINDINGS SUGGESTING SMALL VESSEL ISCHEMIC DISEASE WHICH IS TO A DEGREE THAT WOULD BE CONSIDERED WITHIN NORMAL LIMITS FOR THE PATIENT'S STATED AGE. 2. THERE IS NO EVIDENCE OF ACUTE INTRACRANIAL BLEED. THIS IS AN ELECTRONICALLY VERIFIED FINAL REPORT 02/12/2025 4:05 PM - Electronically signed by Jett Quintero MD
[2025-02-12 16:27] LABS: BLOOD/HEMOGLOBIN,URINE 5+ (NEGATIVE); LEUKOCYTE ESTERASE ,URINE NEGATIVE (NEGATIVE); NITRITES,URINE NEGATIVE (NEGATIVE)
[2025-02-12 16:42] LABS: APPEARANCE,URINE CLEAR (CLEAR)
[2025-02-12 16:43] LABS: SQUAMOUS EPITHELIAL CELL,UR RARE /HPF (NEGATIVE)
[2025-02-12] MEDS: K-RIDER 10 MEQ/100 ML WATER 10 MEQ/100 ML BAG IV ONE (17:07)
[2025-02-12] MEDS ORDERED: CONSULT PHARMACY - POTASSIUM & MAGNESIUM XX SCH (23:45)
[2025-02-13] MEDS: NS 1,000 ML IV 1,000 ML IV SCH ×2 (00:23→10:00)
[2025-02-13] MEDS: K-RIDER 10 MEQ/100 ML WATER 10 MEQ/100 ML BAG IV SCH (00:23)
[2025-02-13 00:58] VITALS: BMI 28.5
[2025-02-13] MEDS ORDERED: K-DUR TAB 20 MEQ PO SCH (01:00)
[2025-02-13] MEDS ORDERED: CONSULT PHARMACY - POTASSIUM & MAGNESIUM XX SCH ×2 (01:00→07:00)
[2025-02-13] MEDS ORDERED: K-DUR TAB 20 MEQ PO ONE (01:00)
[2025-02-13 06:00] LABS: MEAN PLATELET VOLUME 8.5 fL (7.4-11.0); RED CELL DISTRIBUTION WIDTH 16.2 % (11.6-16.5)
[2025-02-13 06:13] LABS: COR CA(FOR HYPOALB) 10.7 mg/dL (8.5-10.1); COR NA(FOR HYPERGLY) 156.0 mmol/L (136-145); CREATININE 2.97 mg/dL (0.55-1.02); eGFR NON BLACK RACES 17.0 (>60)
[2025-02-13] MEDS: CYMBALTA PO SCH (08:23)
[2025-02-13] MEDS: K-DUR TAB 20 MEQ PO SCH (10:38)
[2025-02-13] MEDS: NS 250 ML IV 25 ML IV PRN (10:39)
[2025-02-13] MEDS: COLACE CAP 100 MG PO PRN (12:26)
[2025-02-13] MEDS: MILK OF MAGNESIA PO PRN (12:27)
--- NOTE | 2025-02-13 15:36 | DR.H&P ---
H&P History & Physical for Day of: H&P Date: 02/13/25 Chief Complaint Chief Complaint: AMS History of Present Illness History of Present Illness: Patient presented to the ER with her family due to worsening mental status. Recently admitted here for pneumonia. She was discharged home in improved condition until yesterday. In the ER, she did respond quickly to Narcan with improvement in her mentation overall. She was also found to be severely hypernatremic and hypokalemic. She reports she has been doing adequate p.o. water intake. Feels about the same this morning with continued overall malaise and weakness. nurses deny any overnight events. Does appear to be back at her baseline. ROS: 12 point ROS negative septa as noted above. PE: Well-developed, well-nourished female in no acute distress. Appears tired and chronically ill. Head NCAT with hearing grossly normal. Heart regular rate and rhythm with clear lungs and good speech. Belly is soft and nontender with bowel sounds present. No swelling of her extremities with good range of motion. Poor endurance but good strength. Past Medical History Past Medical History: Anxiety, Depression, Dyslipidemia, Hypertension and Cancer (Metastatic breast) Past Surgical History Surgical History: Mastectomy Family History Family Medical History: Cancer Social History Does patient currently use any type of tobacco product: No Have you used tobacco products in the last 12 months: No Type of Tobacco Use: None Does any household member use tobacco: No Alcohol Use: None Drug Use: Prescription Drugs Medications Home Medications: Home Medications Medication Instructions Recorded Confirmed Type abemaciclib 150 mg tablet 150 mg PO QDAY 02/12/2501/24 History ([place]) celecoxib 200 mg capsule 200 mg PO BID 02/12/2502/12 History cetirizine 10 mg tablet 10 mg PO QDAY 02/12/2502/12 History duloxetine 60 mg capsule,delayed 120 mg PO QDAY 02/12/25 History release lorazepam 1 mg tablet 1 mg PO BID 02/12/25 5 History morphine 30 mg tablet,extended 30 mg PO TID 02/12/25 1 04/14/24 History release oxybutynin chloride 10 mg 10 mg PO QDAY 02/12/2502/12 History tablet,extended release 24 hr oxycodone-acetaminophen 10 mg-325 1 tab PO QID PRN 02/12/25 History mg tablet promethazine 25 mg tablet 25 mg PO Q8H PRN 02/12/25 History quetiapine 400 mg tablet,extended 400 mg PO QPM 02/12/25 History release 24 hr tizanidine 4 mg tablet 4 mg PO BID 02/12/25 5 History zolpidem 12.5 mg tablet,extended 12.5 mg PO QPM PRN 02/12/25 History release,multiphase Allergies Allergies Allergy/AdvReac Type Severity Reaction Status Date / Time ceftriaxone (From [facility]) Allergy Verified 02/12/25: Penicillins Allergy Verified 02/12/25 19: Labs 02/13/25 05:30 02/13/25 05:30 Labs: Laboratory WBC 8.3 X10^3/uL (3.6-10.0) 02/13/25 05:30 RBC 3.40 X10^6/uL (3.5-5.4) L 02/13/25 05:30 Hgb 10.9 g/dL (12.0-16.0) L 02/13/25 05:30 Hct 32.0 % (36.0-47.0) L 02/13/25 05:30 MCV 94.3 fL (80.0-100.0) 02/13/25 05:30 MCH 32.0 pg (27.0-34.0) 02/13/25 05:30 MCHC 33.9 g/dL (33.0-35.0) 02/13/25 05:30 RDW 16.2 % (11.6-16.5) 02/13/25 05:30 Plt Count 326 X10^3/uL (150.0-450.0) 02/13/25 05:30 MPV 8.5 fL (7.4-11.0) 02/13/25 05:30 Neut % (Auto) 76.9 % (42.0-75.0) H 02/13/25 05:30 Lymph % (Auto) 12.0 % (21.0-51.0) L 02/13/25 05:30 [place] % (Auto) 9.5 % (0.0-13.0) 02/13/25 05:30 Eos % (Auto) 0.5 % (0.9-2.9) L 02/13/25 05:30 Baso % (Auto) 1.1 % (0.2-1.0) H 02/13/25 05:30 Neut # (Auto) 6.4 x10^3/uL (2.2-4.8) H 02/13/25 05:30 Lymph # (Auto) 1.0 X10^3/uL (1.3-2.9) L 02/13/25 05:30 [place] # (Auto) 0.8 x10^3/uL (0.3-0.8) 02/13/25 05:30 Eos # (Auto) 0.0 x10^3/uL (0.0-0.2) 02/13/25 05:30 Baso # (Auto) 0.1 X10^3/uL (0.0-0.1) 02/13/25 05:30 Absolute Nucleated RBC 0.3 /100WBC 02/13/25 05:30 Sodium 155 mmol/L (136-145) H* 02/13/25 05:30 Corrected Sodium 156 mmol/L (136-145) H 02/13/25 05:30 Potassium 2.3 mmol/L (3.5-5.1) L* 02/13/25 05:30 Chloride 121 mmol/L (98-107) H* 02/13/25 05:30 Carbon Dioxide 19.2 mmol/L (21-32) L 02/13/25 05:30 BUN 23 mg/dL (7-18) H 02/13/25 05:30 Creatinine 2.97 mg/dL (0.55-1.02) H 02/13/25 05:30 Est GFR (MDRD) Af Amer 21 (>60) L 02/13/25 05:30 Est GFR (MDRD) Non-Af 17 (>60) L 02/13/25 05:30 Glucose 148 mg/dL (65-99) H 02/13/25 05:30 Calcium 9.5 mg/dL (8.5-10.1) 02/13/25 05:30 Corrected Calcium 10.7 mg/dL (8.5-10.1) H 02/13/25 05:30 Magnesium 2.3 mg/dL (2.0-2.9) 02/13/25 05:30 Total Bilirubin 0.70 mg/dL (0.2-1.0) 02/13/25 05:30 AST 33 Units/L (15-37) 02/13/25 05:30 ALT 36 Units/L (12-78) 02/13/25 05:30 Alkaline Phosphatase 82 Units/L (46-116) 02/13/25 05:30 Creatine Kinase 257 Units/L (26-192) H 02/12/25 15:40 Troponin I High Sens 9.0 ng/L (4.0-60.0) 02/12/25 15:40 Total Protein 7.1 g/dL (6.4-8.2) 02/13/25 05:30 Albumin 2.5 g/dL (3.4-5.0) L 02/13/25 05:30 Globulin 4.6 g/dL (2.5-4.5) H 02/13/25 05:30 Albumin/Globulin Ratio 0.5 Ratio (1.1-2.1) L 02/13/25 05:30 Specimen Type Catherized urine 02/12/25 16:05 Urine Color Yellow (YELLOW) 02/12/25 16:05 Urine Appearance Clear (CLEAR) 02/12/25 16:05 Urine pH 6.0 (5.0 - 8.0) 02/12/25 16:05 Ur Specific [place] 1.020 (1.000-1.030) 02/12/25 16:05 Urine Protein 3+ (NEGATIVE) 02/12/25 16:05 Urine Glucose (UA) 3+ (NEGATIVE) 02/12/25 16:05 Urine Ketones Negative (NEGATIVE) 02/12/25 16:05 Urine Blood 5+ (NEGATIVE) 02/12/25 16:05 Urine Nitrite Negative (NEGATIVE) 02/12/25 16:05 Urine Bilirubin Negative (NEGATIVE) 02/12/25 16:05 Urine Urobilinogen Normal (NORMAL) 02/12/25 16:05 Ur Leukocyte Esterase Negative (NEGATIVE) 02/12/25 16:05 Urine RBC None seen /HPF (0-3) 02/12/25 16:05 Urine WBC None seen /HPF (0-5) 02/12/25 16:05 Ur Squamous Epith Cells Rare /HPF (NEGATIVE) 02/12/25 16:05 Amorphous Sediment Trace /HPF (NEGATIVE) 02/12/25 16:05 Urine Bacteria Trace /HPF (NEGATIVE) 02/12/25 16:05 Ur Culture Indicated? No/not indicated 02/12/25 16:05 Urine Opiates Screen Positive (NEG=<300) A 02/12/25 16:05 Urine Methadone Screen Negative (NEG=<300) 02/12/25 16:05 Ur Barbiturates Screen Negative (NEG=<200) 02/12/25 16:05 Ur Phencyclidine Scrn Negative (NEG=<25) 02/12/25 16:05 Ur Amphetamines Screen Negative (NEG=<1000) 02/12/25 16:05 U Benzodiazepines Scrn Negative (NEG=<200) 02/12/25 16:05 Urine Cocaine Screen Negative (NEG=<300) 02/12/25 16:05 U Marijuana (THC) Screen Negative (NEG=<50) 02/12/25 16:05 Physical Exam Vital Signs: Vital Signs Temperature 97.9 F Temperature 98.0 F Pulse Rate [Left Radial] 114 Pulse Rate [Left Radial] 124 Pulse Rate 118 Respiratory Rate 18 Respiratory Rate 18 Respiratory Rate 18 Respiratory Rate 16 Blood Pressure [Left Arm] 158/77 Blood Pressure [Left Arm] 138/63 Blood Pressure 167/66 O2 Sat by Pulse Oximetry 100 O2 Sat by Pulse Oximetry 100 O2 Sat by Pulse Oximetry 99 Assessment/Plan (1) Acute on chronic renal insufficiency: Narrative Support Text: Electrolyte replacement along with aggressive IV hydration. There may have been an element of polypharmacy on top of her electrolyte derangements. 1 of could have contributed to the other, as well. Monitor labs and vitals closely. Anticipate discharge in 24-48 hours. Status: Acute (2) Acute hypokalemia: Status: Acute (3) Acute hypernatremia: Status: Acute (4) Breast cancer metastasized to bone: Qualifiers: Laterality: unspecified laterality Qualified Code(s): C50.919 - Malignant neoplasm of unspecified site of unspecified female breast; C79.51 - Secondary malignant neoplasm of bone Status: Acute (5) Polypharmacy: Status: Acute
[2025-02-13] MEDS: PATIENT'S HOME MEDICATION PO SCH (20:59)
[2025-02-14 06:59] LABS: MEAN PLATELET VOLUME 8.3 fL (7.4-11.0); RED CELL DISTRIBUTION WIDTH 16.0 % (11.6-16.5)
[2025-02-14 07:16] LABS: COR CA(FOR HYPOALB) 10.2 mg/dL (8.5-10.1); COR NA(FOR HYPERGLY) 161.0 mmol/L (136-145); CREATININE 2.19 mg/dL (0.55-1.02); eGFR NON BLACK RACES 24.0 (>60)
[2025-02-14] MEDS ORDERED: NS + KCL 20 MEQ/L 1,000 ML IV SCH (09:00)
[2025-02-14] MEDS: D5 1/2 NS 1,000 ML 1,000 ML IV SCH (12:28)
--- NOTE | 2025-02-14 13:36 | NOTE.SOAP ---
Soap Note Note for Day of Date of Exam: 02/14/25 Subjective Data Subjective Data: Patient seen for daily rounds. Sodium increased from 155-160. Potassium still very low at 2.4. Creatinine with further improvement to 2.19. Normal saline running at 150. Mother at bedside with nurse and myself. Patient still feels poor but no better or no worse. Objective Data Objective Data: Well-developed, well-nourished female in no acute distress. Appears chronically ill and tired. Heart regular rate and rhythm. Lungs are clear with strong speech. Belly is soft and nontender with bowel sounds present. No rash appreciated. Assessment Assessment: PAUL, improving hypernatremia, worsening hypokalemia, stable Breast cancer with bone mets, chronic and stable Plan Plan: Consider referral versus transfer for nephrology/oncology. Switch to D5 half-normal saline. Every 4 BMPs.
[2025-02-14 16:52] LABS: COR NA(FOR HYPERGLY) 159.0 mmol/L (136-145); CREATININE 2.07 mg/dL (0.55-1.02); eGFR NON BLACK RACES 26.0 (>60)
[2025-02-14 20:54] LABS: COR NA(FOR HYPERGLY) 156.0 mmol/L (136-145); CREATININE 2.02 mg/dL (0.55-1.02); eGFR NON BLACK RACES 26.0 (>60)
[2025-02-15 01:15] LABS: COR NA(FOR HYPERGLY) 157.0 mmol/L (136-145); CREATININE 1.59 mg/dL (0.55-1.02); eGFR NON BLACK RACES 35.0 (>60)
[2025-02-15] MEDS: K-DUR TAB 20 MEQ PO SCH ×2 (01:44→08:24)
[2025-02-15] MEDS: K-RIDER 10 MEQ/100 ML WATER 10 MEQ/100 ML BAG IV ONE (01:44)
[2025-02-15] MEDS ORDERED: CONSULT PHARMACY - POTASSIUM & MAGNESIUM XX SCH ×2 (02:00→06:00)
[2025-02-15 05:03] LABS: MEAN PLATELET VOLUME 8.3 fL (7.4-11.0); RED CELL DISTRIBUTION WIDTH 16.1 % (11.6-16.5)
[2025-02-15 05:12] LABS: COR CA(FOR HYPOALB) 10.0 mg/dL (8.5-10.1); COR NA(FOR HYPERGLY) 158.0 mmol/L (136-145); CREATININE 1.63 mg/dL (0.55-1.02); eGFR NON BLACK RACES 34.0 (>60)
[2025-02-15 08:41] LABS: COR NA(FOR HYPERGLY) 157.0 mmol/L (136-145); CREATININE 1.62 mg/dL (0.55-1.02); eGFR NON BLACK RACES 34.0 (>60)
[2025-02-15] MEDS ORDERED: D5W 1,000 ML IV 1,000 ML IV ONE (09:17)
[2025-02-15] MEDS: D5W 1,000 ML IV 1,000 ML IV SCH (09:22)
--- NOTE | 2025-02-15 10:08 | PCM.PROG ---
Progress Note Progress Note for Day of Date of Exam: 02/15/25 Subjective Subjective: Patient seen at bedside, no acute events overnight. She is feeling slightly better. She does report some abdominal discomfort after she took p.o. potassium. Her labs were reviewed, and a 156 potassium 2.6 magnesium 2.1. She has been admitted for PAUL, hyponatremia, hypokalemia and altered mental status. She is alert and oriented this morning. She is asking for her home pain medications and anxiety medicines. Patient does not recall taking more than usual of her pain medicine prior to coming to the ER she has been having BMs. Labs/imaging reviewed: - WBC 7.5 hemoglobin 9 Na 156 potassium 2.6 magnesium 2.1 creatinine 1.63 -CT brain negative Plan: Switch to D5 at 100 cc an hour. Add potassium to fluids. Start p.o. liquid potassium 40 mEq twice daily. Stop Colace and milk of mag due to diarrhea. Repeat BMP in 4 hours. Resume home medications as appropriate. Resume Percocet, Ambien and alprazolam as needed. Replace electrolytes as per protocol. Monitor a.m. labs and imaging. Time spent for clinical assessment, reviewing labs/imaging, physical exam, decision making and documentation greater than 45 mins. Past Medical Family Social History Allergies: Allergies ceftriaxone (From Rocephin) Allergy (Verified 02/12/25 19:22) Penicillins Allergy (Verified 02/12/25 19:22) Vital Signs and I&O's Vital Signs: Vital Signs Temperature 97.5 F Temperature 98.2 F Pulse Rate [Left Radial] 109 Pulse Rate [Left Radial] 106 Respiratory Rate 18 Respiratory Rate 20 Blood Pressure [Left Arm] 158/71 Blood Pressure [Left Arm] 150/74 Blood Pressure [Left Arm] 174/76 O2 Sat by Pulse Oximetry 99 O2 Sat by Pulse Oximetry 98 Intake and Output: Intake & Output 02/12/25 02/13/25 02/14/25 02/15/25 23:59 23:59 23:59 23:59 Intake Total 6844 / 6054 3893 / 3893 1350 / 1350 Balance 5574 / 6054 3893 / 3893 1350 / 1350 Physical Exam Oriented: Normal Throat: Normal Respiratory: Normal Cardiovascular: Normal Auscultation: Bowel Sounds: Normal Palpation: Normal Tenderness: Normal Skin: Normal Musculoskeletal: Normal Psychiatric: Normal Mood Description: Calm Affect: Normal Speech Pattern: Clear and Appropriate Laboratory and Diagnostics 02/15/25 04:41 02/15/25 08:22 Labs: Laboratory WBC 7.5 X10^3/uL (3.6-10.0) 02/15/25 04:41 RBC 2.80 X10^6/uL (3.5-5.4) L 02/15/25 04:41 Hgb 9.0 g/dL (12.0-16.0) L 02/15/25 04:41 Hct 26.3 % (36.0-47.0) L 02/15/25 04:41 MCV 93.9 fL (80.0-100.0) 02/15/25 04:41 MCH 32.3 pg (27.0-34.0) 02/15/25 04:41 MCHC 34.4 g/dL (33.0-35.0) 02/15/25 04:41 RDW 16.1 % (11.6-16.5) 02/15/25 04:41 Plt Count 257 X10^3/uL (150.0-450.0) 02/15/25 04:41 MPV 8.3 fL (7.4-11.0) 02/15/25 04:41 Neut % (Auto) 72.0 % (42.0-75.0) 02/15/25 04:41 Lymph % (Auto) 17.0 % (21.0-51.0) L 02/15/25 04:41 Day % (Auto) 7.0 % (0.0-13.0) 02/15/25 04:41 Eos % (Auto) 3.2 % (0.9-2.9) H 02/15/25 04:41 Baso % (Auto) 0.8 % (0.2-1.0) 02/15/25 04:41 Neut # (Auto) 5.4 x10^3/uL (2.2-4.8) H 02/15/25 04:41 Lymph # (Auto) 1.3 X10^3/uL (1.3-2.9) 02/15/25 04:41 Day # (Auto) 0.5 x10^3/uL (0.3-0.8) 02/15/25 04:41 Eos # (Auto) 0.2 x10^3/uL (0.0-0.2) 02/15/25 04:41 Baso # (Auto) 0.1 X10^3/uL (0.0-0.1) 02/15/25 04:41 Absolute Nucleated RBC 0.2 /100WBC 02/15/25 04:41 Sodium 156 mmol/L (136-145) H* 02/15/25 08:22 Corrected Sodium 157 mmol/L (136-145) H 02/15/25 08:22 Potassium 2.6 mmol/L (3.5-5.1) L* 02/15/25 08:22 Chloride 123 mmol/L (98-107) H* 02/15/25 08:22 Carbon Dioxide 20.5 mmol/L (21-32) L 02/15/25 08:22 BUN 8 mg/dL (7-18) 02/15/25 08:22 Creatinine 1.62 mg/dL (0.55-1.02) H 02/15/25 08:22 Est GFR (MDRD) Af Amer 41 (>60) L 02/15/25 08:22 Est GFR (MDRD) Non-Af 34 (>60) L 02/15/25 08:22 Glucose 158 mg/dL (65-99) H 02/15/25 08:22 Calcium 8.6 mg/dL (8.5-10.1) 02/15/25 08:22 Corrected Calcium 10.0 mg/dL (8.5-10.1) 02/15/25 04:41 Magnesium 2.1 mg/dL (2.0-2.9) 02/15/25 04:41 Total Bilirubin 0.60 mg/dL (0.2-1.0) 02/15/25 04:41 AST 39 Units/L (15-37) H 02/15/25 04:41 ALT 41 Units/L (12-78) 02/15/25 04:41 Alkaline Phosphatase 72 Units/L (46-116) 02/15/25 04:41 Creatine Kinase 257 Units/L (26-192) H 02/12/25 15:40 Troponin I High Sens 9.0 ng/L (4.0-60.0) 02/12/25 15:40 Total Protein 5.8 g/dL (6.4-8.2) L 02/15/25 04:41 Albumin 2.1 g/dL (3.4-5.0) L 02/15/25 04:41 Globulin 3.7 g/dL (2.5-4.5) 02/15/25 04:41 Albumin/Globulin Ratio 0.6 Ratio (1.1-2.1) L 02/15/25 04:41 Specimen Type Catherized urine 02/12/25 16:05 Urine Color Yellow (YELLOW) 02/12/25 16:05 Urine Appearance Clear (CLEAR) 02/12/25 16:05 Urine pH 6.0 (5.0 - 8.0) 02/12/25 16:05 Ur Specific [place] 1.020 (1.000-1.030) 02/12/25 16:05 Urine Protein 3+ (NEGATIVE) 02/12/25 16:05 Urine Glucose (UA) 3+ (NEGATIVE) 02/12/25 16:05 Urine Ketones Negative (NEGATIVE) 02/12/25 16:05 Urine Blood 5+ (NEGATIVE) 02/12/25 16:05 Urine Nitrite Negative (NEGATIVE) 02/12/25 16:05 Urine Bilirubin Negative (NEGATIVE) 02/12/25 16:05 Urine Urobilinogen Normal (NORMAL) 02/12/25 16:05 Ur Leukocyte Esterase Negative (NEGATIVE) 02/12/25 16:05 Urine RBC None seen /HPF (0-3) 02/12/25 16:05 Urine WBC None seen /HPF (0-5) 02/12/25 16:05 Ur Squamous Epith Cells Rare /HPF (NEGATIVE) 02/12/25 16:05 Amorphous Sediment Trace /HPF (NEGATIVE) 02/12/25 16:05 Urine Bacteria Trace /HPF (NEGATIVE) 02/12/25 16:05 Ur Culture Indicated? No/not indicated 02/12/25 16:05 Urine Opiates Screen Positive (NEG=<300) A 02/12/25 16:05 Urine Methadone Screen Negative (NEG=<300) 02/12/25 16:05 Ur Barbiturates Screen Negative (NEG=<200) 02/12/25 16:05 Ur Phencyclidine Scrn Negative (NEG=<25) 02/12/25 16:05 Ur Amphetamines Screen Negative (NEG=<1000) 02/12/25 16:05 U Benzodiazepines Scrn Negative (NEG=<200) 02/12/25 16:05 Urine Cocaine Screen Negative (NEG=<300) 02/12/25 16:05 U Marijuana (THC) Screen Negative (NEG=<50) 02/12/25 16:05 Plan (1) Acute on chronic renal insufficiency: Status: Acute (2) Acute hypokalemia: Status: Acute (3) Acute hypernatremia: Status: Acute (4) Breast cancer metastasized to bone: Status: Chronic Qualifiers: Laterality: unspecified laterality Qualified Code(s): C50.919 - Malignant neoplasm of unspecified site of unspecified female breast; C79.51 - Secondary malignant neoplasm of bone (5) Polypharmacy: Status: Acute (6) Anemia: Status: Chronic Qualifiers: Anemia type: unspecified type Qualified Code(s): D64.9 - Anemia, unspecified
[2025-02-15] MEDS: PERCOCET TAB 5/325 MG PO PRN (10:39)
[2025-02-15] MEDS: POTASSIUM CHLORIDE LIQ PO NR (10:40)
[2025-02-15 15:18] LABS: COR NA(FOR HYPERGLY) 154.0 mmol/L (136-145); CREATININE 1.66 mg/dL (0.55-1.02); eGFR NON BLACK RACES 33.0 (>60)
[2025-02-15] MEDS: BUTT CREAM (COMPOUND) TOP PRN (17:59)
[2025-02-15] MEDS: POTASSIUM CHLORIDE LIQ PO SCH (20:41)
[2025-02-15] MEDS: AMBIEN PO PRN (20:55)
[2025-02-15] MEDS: CATAPRES TAB 0.1 MG PO ONE (23:23)
[2025-02-16] MEDS: APRESOLINE INJ 20 MG VIAL IVP ONE (00:33)
[2025-02-16] MEDS: ATIVAN TAB 1 MG PO PRN (01:13)
[2025-02-16] MEDS: MICARDIS PO ONE (02:13)
[2025-02-16] MEDS: PHENERGAN TAB 25 MG PO PRN (03:05)
[2025-02-16 05:51] LABS: MEAN PLATELET VOLUME 8.4 fL (7.4-11.0); RED CELL DISTRIBUTION WIDTH 16.7 % (11.6-16.5)
[2025-02-16 06:08] LABS: COR CA(FOR HYPOALB) 10.1 mg/dL (8.5-10.1); COR NA(FOR HYPERGLY) 153.0 mmol/L (136-145); CREATININE 1.49 mg/dL (0.55-1.02); eGFR NON BLACK RACES 38.0 (>60)
[2025-02-16] MEDS ORDERED: CONSULT PHARMACY - POTASSIUM & MAGNESIUM XX SCH ×2 (07:00→18:00)
--- NOTE | 2025-02-16 09:41 | PCM.PROG ---
Progress Note Progress Note for Day of Date of Exam: 02/16/25 Subjective Subjective: Patient seen at bedside, no acute events overnight. She does report having some nausea and vomiting yesterday along with diarrhea. She states she has not been eating much. Her blood pressure was elevated yesterday and she did get a dose of Micardis. She does not take any blood pressure medications at home. Her sodium has improved to 152. Potassiums is 2.6. She has been ambulating to the bathroom. Labs/imaging reviewed: - WBC 10.8 hemoglobin 10.1 potassium 2.6 sodium 152 creatinine 1.49 Plan: Continue D5 with KCl, increase potassium to 40 mEq. Increase p.o. potassium to 3 times daily. Order KUB. Changed to soft diet. Zofran as needed. Add Ensure. Start losartan 50 mg daily, monitor blood pressure. Send stool studies if continues to have diarrhea. Replace electrolytes. Continue home medications. Add lovenox for DVT ppx. PT/OT as tolerated. Monitor a.m. labs and imaging. Time spent for clinical assessment, reviewing labs/imaging, physical exam, decision making and documentation greater than 45 mins. Past Medical Family Social History Allergies: Allergies ceftriaxone (From Rocephin) Allergy (Verified 02/12/25 19:22) Penicillins Allergy (Verified 02/12/25 19:22) Vital Signs and I&O's Vital Signs: Vital Signs Temperature 97.8 F Pulse Rate [Left Radial] 98 Respiratory Rate 21 Respiratory Rate 21 Blood Pressure [Left Arm] 160/58 Blood Pressure [Left Arm] 160/58 Blood Pressure [Left Arm] 180/60 O2 Sat by Pulse Oximetry 100 Intake and Output: Intake & Output 02/13/25 02/14/25 02/15/25 02/16/25 23:59 23:59 23:59 23:59 Intake Total 5574 / 6054 3893 / 3893 7425 / 7425 1127 / 1127 Output Total 3700 / 3700 800 / 800 Balance 5574 / 6054 3893 / 3893 3725 / 3725 327 / 327 Physical Exam Oriented: Normal Throat: Normal Respiratory: Normal Cardiovascular: Normal Auscultation: Bowel Sounds: Normal Tenderness: Epigastric and Mild Skin: Normal Musculoskeletal: Normal Psychiatric: Normal Mood Description: Calm Affect: Normal Speech Pattern: Clear and Appropriate Laboratory and Diagnostics 02/16/25 05:13 02/16/25 05:13 Labs: Laboratory WBC 10.8 X10^3/uL (3.6-10.0) H 02/16/25 05:13 RBC 3.17 X10^6/uL (3.5-5.4) L 02/16/25 05:13 Hgb 10.1 g/dL (12.0-16.0) L 02/16/25 05:13 Hct 29.6 % (36.0-47.0) L 02/16/25 05:13 MCV 93.3 fL (80.0-100.0) 02/16/25 05:13 MCH 31.7 pg (27.0-34.0) 02/16/25 05:13 MCHC 34.0 g/dL (33.0-35.0) 02/16/25 05:13 RDW 16.7 % (11.6-16.5) H 02/16/25 05:13 Plt Count 248 X10^3/uL (150.0-450.0) 02/16/25 05:13 MPV 8.4 fL (7.4-11.0) 02/16/25 05:13 Neut % (Auto) 79.5 % (42.0-75.0) H 02/16/25 05:13 Lymph % (Auto) 10.5 % (21.0-51.0) L 02/16/25 05:13 [place] % (Auto) 6.1 % (0.0-13.0) 02/16/25 05:13 Eos % (Auto) 3.1 % (0.9-2.9) H 02/16/25 05:13 Baso % (Auto) 0.8 % (0.2-1.0) 02/16/25 05:13 Neut # (Auto) 8.6 x10^3/uL (2.2-4.8) H 02/16/25 05:13 Lymph # (Auto) 1.1 X10^3/uL (1.3-2.9) L 02/16/25 05:13 [place] # (Auto) 0.7 x10^3/uL (0.3-0.8) 02/16/25 05:13 Eos # (Auto) 0.3 x10^3/uL (0.0-0.2) H 02/16/25 05:13 Baso # (Auto) 0.1 X10^3/uL (0.0-0.1) 02/16/25 05:13 Absolute Nucleated RBC 0.1 /100WBC 02/16/25 05:13 Sodium 152 mmol/L (136-145) H* 02/16/25 05:13 Corrected Sodium 153 mmol/L (136-145) H 02/16/25 05:13 Potassium 2.6 mmol/L (3.5-5.1) L* 02/16/25 05:13 Chloride 121 mmol/L (98-107) H* 02/16/25 05:13 Carbon Dioxide 18.4 mmol/L (21-32) L 02/16/25 05:13 BUN 7 mg/dL (7-18) 02/16/25 05:13 Creatinine 1.49 mg/dL (0.55-1.02) H 02/16/25 05:13 Est GFR (MDRD) Af Amer 45 (>60) L 02/16/25 05:13 Est GFR (MDRD) Non-Af 38 (>60) L 02/16/25 05:13 Glucose 155 mg/dL (65-99) H 02/16/25 05:13 Calcium 8.7 mg/dL (8.5-10.1) 02/16/25 05:13 Corrected Calcium 10.1 mg/dL (8.5-10.1) 02/16/25 05:13 Magnesium 2.1 mg/dL (2.0-2.9) 02/15/25 04:41 Total Bilirubin 0.70 mg/dL (0.2-1.0) 02/16/25 05:13 AST 40 Units/L (15-37) H 02/16/25 05:13 ALT 41 Units/L (12-78) 02/16/25 05:13 Alkaline Phosphatase 76 Units/L (46-116) 02/16/25 05:13 Creatine Kinase 257 Units/L (26-192) H 02/12/25 15:40 Troponin I High Sens 9.0 ng/L (4.0-60.0) 02/12/25 15:40 Total Protein 6.2 g/dL (6.4-8.2) L 02/16/25 05:13 Albumin 2.2 g/dL (3.4-5.0) L 02/16/25 05:13 Globulin 4.0 g/dL (2.5-4.5) 02/16/25 05:13 Albumin/Globulin Ratio 0.6 Ratio (1.1-2.1) L 02/16/25 05:13 Specimen Type Catherized urine 02/12/25 16:05 Urine Color Yellow (YELLOW) 02/12/25 16:05 Urine Appearance Clear (CLEAR) 02/12/25 16:05 Urine pH 6.0 (5.0 - 8.0) 02/12/25 16:05 Ur Specific [place] 1.020 (1.000-1.030) 02/12/25 16:05 Urine Protein 3+ (NEGATIVE) 02/12/25 16:05 Urine Glucose (UA) 3+ (NEGATIVE) 02/12/25 16:05 Urine Ketones Negative (NEGATIVE) 02/12/25 16:05 Urine Blood 5+ (NEGATIVE) 02/12/25 16:05 Urine Nitrite Negative (NEGATIVE) 02/12/25 16:05 Urine Bilirubin Negative (NEGATIVE) 02/12/25 16:05 Urine Urobilinogen Normal (NORMAL) 02/12/25 16:05 Ur Leukocyte Esterase Negative (NEGATIVE) 02/12/25 16:05 Urine RBC None seen /HPF (0-3) 02/12/25 16:05 Urine WBC None seen /HPF (0-5) 02/12/25 16:05 Ur Squamous Epith Cells Rare /HPF (NEGATIVE) 02/12/25 16:05 Amorphous Sediment Trace /HPF (NEGATIVE) 02/12/25 16:05 Urine Bacteria Trace /HPF (NEGATIVE) 02/12/25 16:05 Ur Culture Indicated? No/not indicated 02/12/25 16:05 Urine Opiates Screen Positive (NEG=<300) A 02/12/25 16:05 Urine Methadone Screen Negative (NEG=<300) 02/12/25 16:05 Ur Barbiturates Screen Negative (NEG=<200) 02/12/25 16:05 Ur Phencyclidine Scrn Negative (NEG=<25) 02/12/25 16:05 Ur Amphetamines Screen Negative (NEG=<1000) 02/12/25 16:05 U Benzodiazepines Scrn Negative (NEG=<200) 02/12/25 16:05 Urine Cocaine Screen Negative (NEG=<300) 02/12/25 16:05 U Marijuana (THC) Screen Negative (NEG=<50) 02/12/25 16:05 Plan (1) Acute on chronic renal insufficiency: Status: Acute (2) Acute hypokalemia: Status: Acute (3) Acute hypernatremia: Status: Acute (4) Breast cancer metastasized to bone: Status: Chronic Qualifiers: Laterality: unspecified laterality Qualified Code(s): C50.919 - Malignant neoplasm of unspecified site of unspecified female breast; C79.51 - Secondary malignant neoplasm of bone (5) Polypharmacy: Status: Acute (6) Anemia: Status: Chronic Qualifiers: Anemia type: unspecified type Qualified Code(s): D64.9 - Anemia, unspecified (7) HTN (hypertension): Status: Chronic Qualifiers: Hypertension type: primary hypertension Qualified Code(s): I10 - Essential (primary) hypertension
[2025-02-16] MEDS ORDERED: K-DUR TAB 20 MEQ PO SCH (10:00)
[2025-02-16] MEDS: LOVENOX INJ 40 MG SYR SC SCH (10:10)
[2025-02-16] MEDS: COZAAR PO SCH (10:10)
--- NOTE | 2025-02-16 13:49 | RAD ---
EXAM: KUB HISTORY: n/v/d; COMPARISON: br.br.br.br.br supine FINDINGS: No abnormally distended bowel loops. Mild amount of formed stool throughout the colon. No abnormal calcifications. IMPRESSION: Nonobstructive bowel gas pattern. THIS IS AN ELECTRONICALLY VERIFIED FINAL REPORT 02/16/2025 1:45 PM - Electronically signed by Juan Diego Camarena MD
[2025-02-16] MEDS: POTASSIUM CHLORIDE LIQ PO SCH (14:28)
[2025-02-16 17:15] LABS: COR NA(FOR HYPERGLY) 146.0 mmol/L (136-145); CREATININE 1.36 mg/dL (0.55-1.02); eGFR NON BLACK RACES 42.0 (>60)
[2025-02-17 05:01] LABS: MEAN PLATELET VOLUME 8.5 fL (7.4-11.0); RED CELL DISTRIBUTION WIDTH 16.6 % (11.6-16.5)
[2025-02-17] MEDS: ZOFRAN INJ 4 MG VIAL IVP PRN (05:10)
[2025-02-17 05:12] LABS: COR CA(FOR HYPOALB) 9.4 mg/dL (8.5-10.1); COR NA(FOR HYPERGLY) 148.0 mmol/L (136-145); CREATININE 1.35 mg/dL (0.55-1.02); eGFR NON BLACK RACES 42.0 (>60)
[2025-02-17] MEDS ORDERED: CONSULT PHARMACY - POTASSIUM & MAGNESIUM XX SCH (07:00)
[2025-02-17] MEDS ORDERED: K-DUR TAB 20 MEQ PO SCH (09:00)
--- NOTE | 2025-02-17 09:47 | PCM.PROG ---
Progress Note Progress Note for Day of Date of Exam: 02/17/25 Subjective Subjective: Patient seen at bedside, no acute events overnight. She is still having N/V/D. She was not able to eat much yesterday. She reports some abdominal pain but has not worsened. Stool studies are negative. KUB was normal. Her Na has improved, K still remains low. She did have similar symptoms during her prev admission. Gallbladder US showed sludge and cholelithiasis. Labs/imaging reviewed: - WBC 10 hemoglobin 10 potassium 2.6 sodium 146 creatinine 1.35 Plan: Order CTAP to assess further. Continue D5 with KCl, increase potassium to 60 mEq. Continue PO potassium replacement. Repeat labs this afternoon. Changed to clear liquid diet. Add imodium, pepcid and welchol. Zofran as needed. Ensure. Continue losartan 50 mg daily, monitor blood pressure. Replace electrolytes. Continue home medications. PT/OT as tolerated. Monitor a.m. labs and imaging. Time spent for clinical assessment, reviewing labs/imaging, physical exam, decision making and documentation greater than 45 mins. Past Medical Family Social History Allergies: Allergies ceftriaxone (From Rocephin) Allergy (Verified 02/12/25 19:22) Penicillins Allergy (Verified 02/12/25 19:22) Vital Signs and I&O's Vital Signs: Vital Signs Temperature 98.1 F Pulse Rate [Left Radial] 109 Respiratory Rate 19 Respiratory Rate 20 Blood Pressure [Left Arm] 137/67 O2 Sat by Pulse Oximetry 100 Intake and Output: Intake & Output 02/14/25 02/15/25 02/16/25 02/17/25 23:59 23:59 23:59 23:59 Intake Total 3893 / 3893 7425 / 7425 5662 / 5662 1145 / 1145 Output Total 3700 / 3700 4600 / 4600 Balance 3893 / 3893 3725 / 3725 1062 / 1062 1145 / 1145 Physical Exam Oriented: Normal Throat: Normal Respiratory: Normal Cardiovascular: Normal Auscultation: Bowel Sounds: Normal Tenderness: Epigastric and Mild Skin: Normal Musculoskeletal: Normal Psychiatric: Normal Mood Description: Calm Affect: Normal Speech Pattern: Clear and Appropriate Laboratory and Diagnostics 02/17/25 04:32 02/17/25 04:32 Labs: 02/16/25 09:45 Stool - Final Laboratory WBC 10.0 X10^3/uL (3.6-10.0) 02/17/25 04:32 RBC 3.17 X10^6/uL (3.5-5.4) L 02/17/25 04:32 Hgb 10.0 g/dL (12.0-16.0) L 02/17/25 04:32 Hct 29.5 % (36.0-47.0) L 02/17/25 04:32 MCV 93.1 fL (80.0-100.0) 02/17/25 04:32 MCH 31.6 pg (27.0-34.0) 02/17/25 04:32 MCHC 33.9 g/dL (33.0-35.0) 02/17/25 04:32 RDW 16.6 % (11.6-16.5) H 02/17/25 04:32 Plt Count 217 X10^3/uL (150.0-450.0) 02/17/25 04:32 MPV 8.5 fL (7.4-11.0) 02/17/25 04:32 Neut % (Auto) 78.1 % (42.0-75.0) H 02/17/25 04:32 Lymph % (Auto) 11.5 % (21.0-51.0) L 02/17/25 04:32 [place] % (Auto) 5.2 % (0.0-13.0) 02/17/25 04:32 Eos % (Auto) 4.1 % (0.9-2.9) H 02/17/25 04:32 Baso % (Auto) 1.1 % (0.2-1.0) H 02/17/25 04:32 Neut # (Auto) 7.8 x10^3/uL (2.2-4.8) H 02/17/25 04:32 Lymph # (Auto) 1.2 X10^3/uL (1.3-2.9) L 02/17/25 04:32 [place] # (Auto) 0.5 x10^3/uL (0.3-0.8) 02/17/25 04:32 Eos # (Auto) 0.4 x10^3/uL (0.0-0.2) H 02/17/25 04:32 Baso # (Auto) 0.1 X10^3/uL (0.0-0.1) 02/17/25 04:32 Absolute Nucleated RBC 0.1 /100WBC 02/17/25 04:32 Sodium 146 mmol/L (136-145) H 02/17/25 04:32 Corrected Sodium 148 mmol/L (136-145) H 02/17/25 04:32 Potassium 2.6 mmol/L (3.5-5.1) L* 02/17/25 04:32 Chloride 116 mmol/L (98-107) H* 02/17/25 04:32 Carbon Dioxide 19.9 mmol/L (21-32) L 02/17/25 04:32 BUN 5 mg/dL (7-18) L 02/17/25 04:32 Creatinine 1.35 mg/dL (0.55-1.02) H 02/17/25 04:32 Est GFR (MDRD) Af Amer 51 (>60) L 02/17/25 04:32 Est GFR (MDRD) Non-Af 42 (>60) L 02/17/25 04:32 Glucose 175 mg/dL (65-99) H 02/17/25 04:32 Calcium 7.9 mg/dL (8.5-10.1) L 02/17/25 04:32 Corrected Calcium 9.4 mg/dL (8.5-10.1) 02/17/25 04:32 Magnesium 2.6 mg/dL (2.0-2.9) 02/17/25 04:32 Total Bilirubin 0.60 mg/dL (0.2-1.0) 02/17/25 04:32 AST 33 Units/L (15-37) 02/17/25 04:32 ALT 39 Units/L (12-78) 02/17/25 04:32 Alkaline Phosphatase 76 Units/L (46-116) 02/17/25 04:32 Creatine Kinase 257 Units/L (26-192) H 02/12/25 15:40 Troponin I High Sens 9.0 ng/L (4.0-60.0) 02/12/25 15:40 Total Protein 6.2 g/dL (6.4-8.2) L 02/17/25 04:32 Albumin 2.1 g/dL (3.4-5.0) L 02/17/25 04:32 Globulin 4.1 g/dL (2.5-4.5) 02/17/25 04:32 Albumin/Globulin Ratio 0.5 Ratio (1.1-2.1) L 02/17/25 04:32 Specimen Type Catherized urine 02/12/25 16:05 Urine Color Yellow (YELLOW) 02/12/25 16:05 Urine Appearance Clear (CLEAR) 02/12/25 16:05 Urine pH 6.0 (5.0 - 8.0) 02/12/25 16:05 Ur Specific [place] 1.020 (1.000-1.030) 02/12/25 16:05 Urine Protein 3+ (NEGATIVE) 02/12/25 16:05 Urine Glucose (UA) 3+ (NEGATIVE) 02/12/25 16:05 Urine Ketones Negative (NEGATIVE) 02/12/25 16:05 Urine Blood 5+ (NEGATIVE) 02/12/25 16:05 Urine Nitrite Negative (NEGATIVE) 02/12/25 16:05 Urine Bilirubin Negative (NEGATIVE) 02/12/25 16:05 Urine Urobilinogen Normal (NORMAL) 02/12/25 16:05 Ur Leukocyte Esterase Negative (NEGATIVE) 02/12/25 16:05 Urine RBC None seen /HPF (0-3) 02/12/25 16:05 Urine WBC None seen /HPF (0-5) 02/12/25 16:05 Ur Squamous Epith Cells Rare /HPF (NEGATIVE) 02/12/25 16:05 Amorphous Sediment Trace /HPF (NEGATIVE) 02/12/25 16:05 Urine Bacteria Trace /HPF (NEGATIVE) 02/12/25 16:05 Ur Culture Indicated? No/not indicated 02/12/25 16:05 Stl C. diff Tox B Gene Negative (NEGATIVE) 02/16/25 09:45 Stl C. diff [id number]-NAP1-BI Presumptive negative (NEGATIVE) 02/16/25 09:45 Urine Opiates Screen Positive (NEG=<300) A 02/12/25 16:05 Urine Methadone Screen Negative (NEG=<300) 02/12/25 16:05 Ur Barbiturates Screen Negative (NEG=<200) 02/12/25 16:05 Ur Phencyclidine Scrn Negative (NEG=<25) 02/12/25 16:05 Ur Amphetamines Screen Negative (NEG=<1000) 02/12/25 16:05 U Benzodiazepines Scrn Negative (NEG=<200) 02/12/25 16:05 Urine Cocaine Screen Negative (NEG=<300) 02/12/25 16:05 U Marijuana (THC) Screen Negative (NEG=<50) 02/12/25 16:05 Plan (1) Nausea vomiting and diarrhea: Status: Acute (2) Acute on chronic renal insufficiency: Status: Acute (3) Acute hypokalemia: Status: Acute (4) Acute hypernatremia: Status: Acute (5) Breast cancer metastasized to bone: Status: Chronic Qualifiers: Laterality: unspecified laterality Qualified Code(s): C50.919 - Malignant neoplasm of unspecified site of unspecified female breast; C79.51 - Secondary malignant neoplasm of bone (6) Polypharmacy: Status: Acute (7) Anemia: Status: Chronic Qualifiers: Anemia type: unspecified type Qualified Code(s): D64.9 - Anemia, unspecified (8) HTN (hypertension): Status: Chronic Qualifiers: Hypertension type: primary hypertension Qualified Code(s): I10 - Essential (primary) hypertension
[2025-02-17] MEDS ORDERED: OMNIPAQUE 350 mg/mL 100 mL BTL 100 ML ONE (10:00)
[2025-02-17] MEDS: OMNIPAQUE 350 mg/mL 100 mL BTL IVP NR (10:16)
[2025-02-17] MEDS: PEPCID TAB 40 MG PO SCH (10:35)
[2025-02-17] MEDS: IMODIUM CAP 2 MG PO ONE (10:35)
--- NOTE | 2025-02-17 10:49 | CT ---
EXAM: CT ABDOMEN AND PELVIS WITH CONTRAST HISTORY: WORSENING N/V, ABDOMEN PAIN; COMPARISON: None. TECHNIQUE: Axial CT images were obtained through the abdomen and pelvis after the intravenous administration of contrast. Coronal reformatted images were included. Informed written consent was obtained prior to contrast administration. All CT scans at this facility use dose modulation, iterative reconstruction, and/or weight based dosing when appropriate to reduce radiation dose to as low as reasonably achievable. FINDINGS: LOWER THORAX: Within normal limits. ABDOMEN: LIVER: Within normal limits. GALLBLADDER: Within normal limits. SPLEEN: Within normal limits. PANCREAS: Pancreatic tail is abnormal. There is some fat stranding around the tail with a small fluid collection adjacent to the pancreatic tail measuring 3.8 cm on image 23 insinuating into the splenic hilum KIDNEYS: Within normal limits. ADRENAL GLANDS: Within normal limits. GI TRACT: Course and caliber are within normal limits. LYMPH NODES: No abnormally enlarged nodes. VESSELS: Within normal limits. PERITONEUM / RETROPERITONEUM: No free gas. PELVIS: BLADDER: Within normal limits. GENITALS: Within normal limits. BONES: Bony structures show a diffusely mottled appearance with bubbly appearing lesions throughout the spine consistent with metastatic disease. IMPRESSION: There are some changes in the region of the pancreatic tail which could relate to acute pancreatitis with a small amount of peripancreatic fluid around the tail insinuating into the region of the splenic hilum. Correlation with pancreatic enzymes ultimately suggested. Diffusely mottled appearance of the axial and appendicular skeleton worrisome for diffuse metastatic disease of unknown primary. THIS IS AN ELECTRONICALLY VERIFIED FINAL REPORT 02/17/2025 10:46 AM - Electronically signed by Juan Diego Lizarraga MD
[2025-02-17] MEDS: M.S. CONTIN 30 MG EXTENDED RELEASE PO PRN (13:53)
[2025-02-17] MEDS: WELCHOL PO SCH (20:36)
[2025-02-18 05:24] LABS: MEAN PLATELET VOLUME 8.5 fL (7.4-11.0); RED CELL DISTRIBUTION WIDTH 16.9 % (11.6-16.5)
[2025-02-18 05:35] LABS: COR CA(FOR HYPOALB) 10.1 mg/dL (8.5-10.1); COR NA(FOR HYPERGLY) 147.0 mmol/L (136-145); CREATININE 1.34 mg/dL (0.55-1.02); eGFR NON BLACK RACES 42.0 (>60)
--- NOTE | 2025-02-18 09:52 | PCM.PROG ---
Progress Note Progress Note for Day of Date of Exam: 02/18/25 Subjective Subjective: Patient is resting in bed. No acute events overnight. She reports abdominal pain, nausea, has improved and she feels much better this morning. CT abdomen and pelvis yesterday was obtained that revealed possible pancreatitis. Her lipase was also elevated. Labs/imaging reviewed: - WBC 10.9, hemoglobin 10.8, platelets 204, sodium 147, potassium 4.2, creatinine 1.34, glucose 139. Lipase 178, - Stool culture no growth to date. - CT abdomen pelvis reviewed Plan: Continue D5 with KCl. Continue PO potassium replacement. Will advance diet. Hold verzenio due to pancreatitis. Continue Imodium, Pepcid and Welchol. Zofran as needed. Ensure. Continue losartan 50 mg daily, monitor blood pressure. Replace electrolytes. Continue home medications. PT/OT as tolerated. Monitor a.m. labs and imaging. Time spent for clinical assessment, reviewing labs/imaging, physical exam, decision making and documentation greater than 45 mins. Past Medical Family Social History Allergies: Allergies ceftriaxone (From Rocephin) Allergy (Verified 02/12/25 19:22) Penicillins Allergy (Verified 02/12/25 19:22) Review of Systems ROS changes noted: see HPI Vital Signs and I&O's Vital Signs: Vital Signs Temperature 98.0 F Temperature 98.2 F Pulse Rate [Left Radial] 104 Pulse Rate [Left Radial] 102 Respiratory Rate 20 Respiratory Rate 20 Blood Pressure [Right Arm] 126/60 Blood Pressure [Right Arm] 117/58 O2 Sat by Pulse Oximetry 100 O2 Sat by Pulse Oximetry 98 Intake and Output: Intake & Output 02/15/25 02/16/25 02/17/25 02/18/25 23:59 23:59 23:59 23:59 Intake Total 7425 / 7425 5662 / 5662 4035 / 4035 270 / 270 Output Total 3700 / 3700 4600 / 4600 1250 / 1250 Balance 3725 / 3725 1062 / 1062 2785 / 2785 270 / 270 Physical Exam Oriented: Normal Throat: Normal Respiratory: Normal Cardiovascular: Normal Auscultation: Bowel Sounds: Normal Tenderness: Epigastric and Mild Skin: Normal Musculoskeletal: Normal Psychiatric: Normal Mood Description: Calm Affect: Normal Speech Pattern: Clear and Appropriate Laboratory and Diagnostics 02/18/25 05:04 02/18/25 05:04 Labs: 02/16/25 09:45 Stool Stool Culture - Final 02/16/25 09:45 Stool - Final Laboratory WBC 10.9 X10^3/uL (3.6-10.0) H 02/18/25 05:04 RBC 3.38 X10^6/uL (3.5-5.4) L 02/18/25 05:04 Hgb 10.8 g/dL (12.0-16.0) L 02/18/25 05:04 Hct 32.1 % (36.0-47.0) L 02/18/25 05:04 MCV 95.0 fL (80.0-100.0) 02/18/25 05:04 MCH 32.0 pg (27.0-34.0) 02/18/25 05:04 MCHC 33.7 g/dL (33.0-35.0) 02/18/25 05:04 RDW 16.9 % (11.6-16.5) H 02/18/25 05:04 Plt Count 204 X10^3/uL (150.0-450.0) 02/18/25 05:04 MPV 8.5 fL (7.4-11.0) 02/18/25 05:04 Neut % (Auto) 75.1 % (42.0-75.0) H 02/18/25 05:04 Lymph % (Auto) 11.1 % (21.0-51.0) L 02/18/25 05:04 [place] % (Auto) 6.9 % (0.0-13.0) 02/18/25 05:04 Eos % (Auto) 6.3 % (0.9-2.9) H 02/18/25 05:04 Baso % (Auto) 0.6 % (0.2-1.0) 02/18/25 05:04 Neut # (Auto) 8.2 x10^3/uL (2.2-4.8) H 02/18/25 05:04 Lymph # (Auto) 1.2 X10^3/uL (1.3-2.9) L 02/18/25 05:04 [place] # (Auto) 0.8 x10^3/uL (0.3-0.8) 02/18/25 05:04 Eos # (Auto) 0.7 x10^3/uL (0.0-0.2) H 02/18/25 05:04 Baso # (Auto) 0.1 X10^3/uL (0.0-0.1) 02/18/25 05:04 Absolute Nucleated RBC 0.2 /100WBC 02/18/25 05:04 Sodium 146 mmol/L (136-145) H 02/18/25 05:04 Corrected Sodium 147 mmol/L (136-145) H 02/18/25 05:04 Potassium 4.2 mmol/L (3.5-5.1) 02/18/25 05:04 Chloride 119 mmol/L (98-107) H* 02/18/25 05:04 Carbon Dioxide 17.1 mmol/L (21-32) L 02/18/25 05:04 BUN 5 mg/dL (7-18) L 02/18/25 05:04 Creatinine 1.34 mg/dL (0.55-1.02) H 02/18/25 05:04 Est GFR (MDRD) Af Amer 51 (>60) L 02/18/25 05:04 Est GFR (MDRD) Non-Af 42 (>60) L 02/18/25 05:04 Glucose 139 mg/dL (65-99) H 02/18/25 05:04 Calcium 8.8 mg/dL (8.5-10.1) 02/18/25 05:04 Corrected Calcium 10.1 mg/dL (8.5-10.1) 02/18/25 05:04 Magnesium 2.6 mg/dL (2.0-2.9) 02/18/25 05:04 Total Bilirubin 0.50 mg/dL (0.2-1.0) 02/18/25 05:04 AST 35 Units/L (15-37) 02/18/25 05:04 ALT 44 Units/L (12-78) 02/18/25 05:04 Alkaline Phosphatase 83 Units/L (46-116) 02/18/25 05:04 Creatine Kinase 257 Units/L (26-192) H 02/12/25 15:40 Troponin I High Sens 9.0 ng/L (4.0-60.0) 02/12/25 15:40 Total Protein 6.7 g/dL (6.4-8.2) 02/18/25 05:04 Albumin 2.4 g/dL (3.4-5.0) L 02/18/25 05:04 Globulin 4.3 g/dL (2.5-4.5) 02/18/25 05:04 Albumin/Globulin Ratio 0.6 Ratio (1.1-2.1) L 02/18/25 05:04 Amylase 31 Units/L (25-115) 02/17/25 04:32 Lipase 178 Units/L (16-77) H 02/17/25 04:32 Specimen Type Catherized urine 02/12/25 16:05 Urine Color Yellow (YELLOW) 02/12/25 16:05 Urine Appearance Clear (CLEAR) 02/12/25 16:05 Urine pH 6.0 (5.0 - 8.0) 02/12/25 16:05 Ur Specific [place] 1.020 (1.000-1.030) 02/12/25 16:05 Urine Protein 3+ (NEGATIVE) 02/12/25 16:05 Urine Glucose (UA) 3+ (NEGATIVE) 02/12/25 16:05 Urine Ketones Negative (NEGATIVE) 02/12/25 16:05 Urine Blood 5+ (NEGATIVE) 02/12/25 16:05 Urine Nitrite Negative (NEGATIVE) 02/12/25 16:05 Urine Bilirubin Negative (NEGATIVE) 02/12/25 16:05 Urine Urobilinogen Normal (NORMAL) 02/12/25 16:05 Ur Leukocyte Esterase Negative (NEGATIVE) 02/12/25 16:05 Urine RBC None seen /HPF (0-3) 02/12/25 16:05 Urine WBC None seen /HPF (0-5) 02/12/25 16:05 Ur Squamous Epith Cells Rare /HPF (NEGATIVE) 02/12/25 16:05 Amorphous Sediment Trace /HPF (NEGATIVE) 02/12/25 16:05 Urine Bacteria Trace /HPF (NEGATIVE) 02/12/25 16:05 Ur Culture Indicated? No/not indicated 02/12/25 16:05 Stl C. diff Tox B Gene Negative (NEGATIVE) 02/16/25 09:45 Stl C. diff 027-NAP1-BI Presumptive negative (NEGATIVE) 02/16/25 09:45 Urine Opiates Screen Positive (NEG=<300) A 02/12/25 16:05 Urine Methadone Screen Negative (NEG=<300) 02/12/25 16:05 Ur Barbiturates Screen Negative (NEG=<200) 02/12/25 16:05 Ur Phencyclidine Scrn Negative (NEG=<25) 02/12/25 16:05 Ur Amphetamines Screen Negative (NEG=<1000) 02/12/25 16:05 U Benzodiazepines Scrn Negative (NEG=<200) 02/12/25 16:05 Urine Cocaine Screen Negative (NEG=<300) 02/12/25 16:05 U Marijuana (THC) Screen Negative (NEG=<50) 02/12/25 16:05 Plan (1) Nausea vomiting and diarrhea: Status: Acute (2) Acute on chronic renal insufficiency: Status: Acute (3) Acute hypokalemia: Status: Acute (4) Acute hypernatremia: Status: Acute (5) Breast cancer metastasized to bone: Status: Chronic Qualifiers: Laterality: unspecified laterality Qualified Code(s): C50.919 - Malignant neoplasm of unspecified site of unspecified female breast; C79.51 - Secondary malignant neoplasm of bone (6) Polypharmacy: Status: Acute (7) Anemia: Status: Chronic Qualifiers: Anemia type: unspecified type Qualified Code(s): D64.9 - Anemia, unspecified (8) HTN (hypertension): Status: Chronic Qualifiers: Hypertension type: primary hypertension Qualified Code(s): I10 - Essential (primary) hypertension
[2025-02-19 07:43] LABS: MEAN PLATELET VOLUME 8.8 fL (7.4-11.0); RED CELL DISTRIBUTION WIDTH 17.0 % (11.6-16.5)
[2025-02-19 07:51] LABS: COR CA(FOR HYPOALB) 9.7 mg/dL (8.5-10.1); COR NA(FOR HYPERGLY) 138.0 mmol/L (136-145); CREATININE 1.59 mg/dL (0.55-1.02); eGFR NON BLACK RACES 35.0 (>60)
[2025-02-19 08:03] LABS: BAND NEUTROPHILS % 3 % (0-10); PLATELET MORPHOLOGY COMMENT NORMAL (NORMAL)
[2025-02-20 05:26] LABS: MEAN PLATELET VOLUME 9.7 fL (7.4-11.0); RED CELL DISTRIBUTION WIDTH 16.9 % (11.6-16.5)
[2025-02-20 05:42] LABS: COR CA(FOR HYPOALB) 9.5 mg/dL (8.5-10.1); COR NA(FOR HYPERGLY) 135.0 mmol/L (136-145); CREATININE 1.92 mg/dL (0.55-1.02); eGFR NON BLACK RACES 28.0 (>60)
--- NOTE | 2025-02-20 09:12 | PCM.PROG ---
Progress Note Progress Note for Day of Date of Exam: 02/19/25 Subjective Subjective: Patient is resting in bed. No acute events overnight. She reports having some nausea/vomiting last night. She states abdominal pain has improved. She has not been getting up out of bed. Discussed with patient to ambulate or sit on the chair as tolerated. Labs/imaging reviewed: - WBC 8.3 , hemoglobin 10.3, sodium 137, potassium 5.1, creatinine 1.59 - Stool culture no growth to date. - CT abdomen pelvis reviewed Plan: Stop hydration and potassium supplement. Will advance diet. Encouraged patient to ambulate as tolerated. Possible discharge later this afternoon. Hold verzenio due to pancreatitis. Continue Imodium, Pepcid and Welchol. Zofran as needed. Ensure. Continue losartan 50 mg daily, monitor blood pressure. Replace electrolytes. Continue home medications. PT/OT as tolerated. Monitor a.m. labs and imaging. Past Medical Family Social History Allergies: Allergies ceftriaxone (From Rocephin) Allergy (Verified 02/12/25 19:22) Penicillins Allergy (Verified 02/12/25 19:22) Vital Signs and I&O's Vital Signs: Vital Signs Temperature 97.5 F Temperature 97.9 F Pulse Rate [Left Radial] 111 Pulse Rate [Left Radial] 114 Respiratory Rate 18 Respiratory Rate 20 Blood Pressure [Right Arm] 98/56 Blood Pressure [Right Arm] 118/56 O2 Sat by Pulse Oximetry 98 O2 Sat by Pulse Oximetry 100 Intake and Output: Intake & Output 02/17/25 02/18/25 02/19/25 02/20/25 23:59 23:59 23:59 23:59 Intake Total 4035 / 4035 4297 / 4297 3973 / 3973 Output Total 1250 / 1250 3150 / 3150 1750 / 1750 Balance 2785 / 2785 1147 / 1147 2223 / 2223 Physical Exam Oriented: Normal Throat: Normal Respiratory: Normal Cardiovascular: Normal Auscultation: Bowel Sounds: Normal Palpation: Normal Tenderness: Epigastric and Mild Skin: Normal Musculoskeletal: Normal Psychiatric: Normal Mood Description: Calm Affect: Normal Speech Pattern: Clear and Appropriate Laboratory and Diagnostics 02/20/25 04:47 02/20/25 04:47 Labs: 02/16/25 09:45 Stool Stool Culture - Final 02/16/25 09:45 Stool - Final Laboratory WBC 10.6 X10^3/uL (3.6-10.0) H 02/20/25 04:47 RBC 3.53 X10^6/uL (3.5-5.4) 02/20/25 04:47 Hgb 11.3 g/dL (12.0-16.0) L 02/20/25 04:47 Hct 33.2 % (36.0-47.0) L 02/20/25 04:47 MCV 94.2 fL (80.0-100.0) 02/20/25 04:47 MCH 32.1 pg (27.0-34.0) 02/20/25 04:47 MCHC 34.0 g/dL (33.0-35.0) 02/20/25 04:47 RDW 16.9 % (11.6-16.5) H 02/20/25 04:47 Plt Count 182 X10^3/uL (150.0-450.0) 02/20/25 04:47 Plt Count Comment Adequate (ADEQUATE) 02/19/25 07:21 MPV 9.7 fL (7.4-11.0) 02/20/25 04:47 Neut % (Auto) 76.5 % (42.0-75.0) H 02/20/25 04:47 Lymph % (Auto) 11.0 % (21.0-51.0) L 02/20/25 04:47 [place] % (Auto) 7.2 % (0.0-13.0) 02/20/25 04:47 Eos % (Auto) 4.5 % (0.9-2.9) H 02/20/25 04:47 Baso % (Auto) 0.8 % (0.2-1.0) 02/20/25 04:47 Neut # (Auto) 8.1 x10^3/uL (2.2-4.8) H 02/20/25 04:47 Lymph # (Auto) 1.2 X10^3/uL (1.3-2.9) L 02/20/25 04:47 [place] # (Auto) 0.8 x10^3/uL (0.3-0.8) 02/20/25 04:47 Eos # (Auto) 0.5 x10^3/uL (0.0-0.2) H 02/20/25 04:47 Baso # (Auto) 0.1 X10^3/uL (0.0-0.1) 02/20/25 04:47 Absolute Nucleated RBC 0.1 /100WBC 02/20/25 04:47 Total Counted 100 02/19/25 07:21 Neutrophils % (Manual) 72 % (39-76) 02/19/25 07:21 Band Neutrophils % 3 % (0-10) 02/19/25 07:21 Lymphocytes % (Manual) 16 % (13-43) 02/19/25 07:21 Monocytes % (Manual) 3 % (4-9) L 02/19/25 07:21 Eosinophils % (Manual) 6 % (0-6) 02/19/25 07:21 Plt Morphology Comment Normal (NORMAL) 02/19/25 07:21 RBC Morphology Abnormal (NORMAL) A 02/19/25 07:21 Anisocytosis Slight A 02/19/25 07:21 Sodium 134 mmol/L (136-145) L 02/20/25 04:47 Corrected Sodium 135 mmol/L (136-145) L 02/20/25 04:47 Potassium 4.2 mmol/L (3.5-5.1) 02/20/25 04:47 Chloride 106 mmol/L (98-107) 02/20/25 04:47 Carbon Dioxide 15.5 mmol/L (21-32) L 02/20/25 04:47 BUN 12 mg/dL (7-18) 02/20/25 04:47 Creatinine 1.92 mg/dL (0.55-1.02) H 02/20/25 04:47 Est GFR (MDRD) Af Amer 34 (>60) L 02/20/25 04:47 Est GFR (MDRD) Non-Af 28 (>60) L 02/20/25 04:47 Glucose 135 mg/dL (65-99) H 02/20/25 04:47 Calcium 8.5 mg/dL (8.5-10.1) 02/20/25 04:47 Corrected Calcium 9.5 mg/dL (8.5-10.1) 02/20/25 04:47 Magnesium 2.6 mg/dL (2.0-2.9) 02/18/25 05:04 Total Bilirubin 0.90 mg/dL (0.2-1.0) 02/20/25 04:47 AST 29 Units/L (15-37) 02/20/25 04:47 ALT 44 Units/L (12-78) 02/20/25 04:47 Alkaline Phosphatase 94 Units/L (46-116) 02/20/25 04:47 Creatine Kinase 257 Units/L (26-192) H 02/12/25 15:40 Troponin I High Sens 9.0 ng/L (4.0-60.0) 02/12/25 15:40 Total Protein 7.1 g/dL (6.4-8.2) 02/20/25 04:47 Albumin 2.7 g/dL (3.4-5.0) L 02/20/25 04:47 Globulin 4.4 g/dL (2.5-4.5) 02/20/25 04:47 Albumin/Globulin Ratio 0.6 Ratio (1.1-2.1) L 02/20/25 04:47 Amylase 31 Units/L (25-115) 02/17/25 04:32 Lipase 178 Units/L (16-77) H 02/17/25 04:32 Specimen Type Catherized urine 02/12/25 16:05 Urine Color Yellow (YELLOW) 02/12/25 16:05 Urine Appearance Clear (CLEAR) 02/12/25 16:05 Urine pH 6.0 (5.0 - 8.0) 02/12/25 16:05 Ur Specific [place] 1.020 (1.000-1.030) 02/12/25 16:05 Urine Protein 3+ (NEGATIVE) 02/12/25 16:05 Urine Glucose (UA) 3+ (NEGATIVE) 02/12/25 16:05 Urine Ketones Negative (NEGATIVE) 02/12/25 16:05 Urine Blood 5+ (NEGATIVE) 02/12/25 16:05 Urine Nitrite Negative (NEGATIVE) 02/12/25 16:05 Urine Bilirubin Negative (NEGATIVE) 02/12/25 16:05 Urine Urobilinogen Normal (NORMAL) 02/12/25 16:05 Ur Leukocyte Esterase Negative (NEGATIVE) 02/12/25 16:05 Urine RBC None seen /HPF (0-3) 02/12/25 16:05 Urine WBC None seen /HPF (0-5) 02/12/25 16:05 Ur Squamous Epith Cells Rare /HPF (NEGATIVE) 02/12/25 16:05 Amorphous Sediment Trace /HPF (NEGATIVE) 02/12/25 16:05 Urine Bacteria Trace /HPF (NEGATIVE) 02/12/25 16:05 Ur Culture Indicated? No/not indicated 02/12/25 16:05 Stl C. diff Tox B Gene Negative (NEGATIVE) 02/16/25 09:45 Stl C. diff [id number]-NAP1-BI Presumptive negative (NEGATIVE) 02/16/25 09:45 Urine Opiates Screen Positive (NEG=<300) A 02/12/25 16:05 Urine Methadone Screen Negative (NEG=<300) 02/12/25 16:05 Ur Barbiturates Screen Negative (NEG=<200) 02/12/25 16:05 Ur Phencyclidine Scrn Negative (NEG=<25) 02/12/25 16:05 Ur Amphetamines Screen Negative (NEG=<1000) 02/12/25 16:05 U Benzodiazepines Scrn Negative (NEG=<200) 02/12/25 16:05 Urine Cocaine Screen Negative (NEG=<300) 02/12/25 16:05 U Marijuana (THC) Screen Negative (NEG=<50) 02/12/25 16:05 Plan (1) Acute pancreatitis: Status: Acute Qualifiers: Acute pancreatitis complication: unspecified Pancreatitis type: other Qualified Code(s): K85.80 - Other acute pancreatitis without necrosis or infection (2) Nausea vomiting and diarrhea: Status: Acute (3) Acute on chronic renal insufficiency: Status: Acute (4) Acute hypokalemia: Status: Acute (5) Acute hypernatremia: Status: Acute (6) Breast cancer metastasized to bone: Status: Chronic Qualifiers: Laterality: unspecified laterality Qualified Code(s): C50.919 - Malignant neoplasm of unspecified site of unspecified female breast; C79.51 - Secondary malignant neoplasm of bone (7) Polypharmacy: Status: Acute (8) Anemia: Status: Chronic Qualifiers: Anemia type: unspecified type Qualified Code(s): D64.9 - Anemia, unspecified (9) HTN (hypertension): Status: Chronic Qualifiers: Hypertension type: primary hypertension Qualified Code(s): I10 - Essential (primary) hypertension
[2025-02-20] MEDS: NS 1,000 ML IV 1,000 ML IV SCH (10:48)
[2025-02-20 15:12] LABS: COR NA(FOR HYPERGLY) 135.0 mmol/L (136-145); CREATININE 2.28 mg/dL (0.55-1.02); eGFR NON BLACK RACES 23.0 (>60)
[2025-02-20] MEDS: PROTONIX INJ 40 MG VIAL IVP SCH (16:07)
[2025-02-21 05:11] LABS: MEAN PLATELET VOLUME 9.5 fL (7.4-11.0); RED CELL DISTRIBUTION WIDTH 16.4 % (11.6-16.5)
[2025-02-21 05:22] LABS: COR CA(FOR HYPOALB) 9.3 mg/dL (8.5-10.1); COR NA(FOR HYPERGLY) 142.0 mmol/L (136-145); CREATININE 1.9 mg/dL (0.55-1.02); eGFR NON BLACK RACES 28.0 (>60)
--- NOTE | 2025-02-21 11:15 | PCM.PROG ---
Progress Note Progress Note for Day of Date of Exam: 02/20/25 Subjective Subjective: Patient is resting in bed. No acute events overnight. She states her abdominal pain and diarrhea has improved. She still has some nausea but has been eating better. She would like to try soft diet. Labs/imaging reviewed: - WBC 10.6 , hemoglobin 11.3, sodium 134, potassium 4.2, creatinine 1.92 - Stool culture no growth to date. - CT abdomen pelvis reviewed Plan: Advance diet. Encouraged patient to ambulate as tolerated. Start NS. Repeat BMP this afternoon. Possible discharge if renal function is improving. Hold verzenio due to pancreatitis. Continue Imodium, Pepcid and Welchol. Zofran as needed. Ensure. Hold losartan 50 mg, monitor blood pressure. Replace electrolytes. Continue home medications. PT/OT as tolerated. Patient's repeat BMP did show worsening renal function. Normal saline was increased to 100cc/hr. Dr. Mauricio with general surgery was consulted for possible EGD. Past Medical Family Social History Allergies: Allergies [facility] ([facility] [place] Allergy (Verified 02/12/25 19:22) Penicillins Allergy (Verified 02/12/25 19:22) Vital Signs and I&O's Vital Signs: Vital Signs Temperature 97.9 F Temperature 98.9 F Pulse Rate [Left Radial] 119 Pulse Rate [Left Radial] 121 Respiratory Rate 18 Respiratory Rate 18 Respiratory Rate 18 Blood Pressure [Right Arm] 134/65 Blood Pressure [Right Arm] 141/63 O2 Sat by Pulse Oximetry 98 O2 Sat by Pulse Oximetry 98 Intake and Output: Intake & Output 02/18/25 02/19/25 02/20/25 02/21/25 23:59 23:59 23:59 23:59 Intake Total 4297 / 4297 3973 / 3973 910 / 910 1782 Output Total 3150 / 3150 1750 / 1750 400 / 400 Balance 1147 / 1147 2223 / 2223 510 / 510 [id number] Physical Exam Oriented: Normal Throat: Normal Respiratory: Normal Cardiovascular: Normal Auscultation: Bowel Sounds: Normal Palpation: Normal Tenderness: Normal Skin: Normal Musculoskeletal: Normal Psychiatric: Normal Mood Description: Calm Affect: Normal Speech Pattern: Clear and Appropriate Laboratory and Diagnostics 02/21/25 04:42 02/21/25 04:42 Labs: 02/16/25 09:45 Stool Stool Culture - Final 02/16/25 09:45 Stool - Final Laboratory WBC 11.0 X10^3/uL (3.6-10.0) H 02/21/25 04:42 RBC 3.28 X10^6/uL (3.5-5.4) L 02/21/25 04:42 Hgb 10.4 g/dL (12.0-16.0) L 02/21/25 04:42 Hct 30.9 % (36.0-47.0) L 02/21/25 04:42 MCV 94.2 fL (80.0-100.0) 02/21/25 04:42 MCH 31.7 pg (27.0-34.0) 02/21/25 04:42 MCHC 33.7 g/dL (33.0-35.0) 02/21/25 04:42 RDW 16.4 % (11.6-16.5) 02/21/25 04:42 Plt Count 177 X10^3/uL (150.0-450.0) 02/21/25 04:42 Plt Count Comment Adequate (ADEQUATE) 02/19/25 07:21 MPV 9.5 fL (7.4-11.0) 02/21/25 04:42 Neut % (Auto) 78.5 % (42.0-75.0) H 02/21/25 04:42 Lymph % (Auto) 11.5 % (21.0-51.0) L 02/21/25 04:42 [place] % (Auto) 6.8 % (0.0-13.0) 02/21/25 04:42 Eos % (Auto) 2.8 % (0.9-2.9) 02/21/25 04:42 Baso % (Auto) 0.4 % (0.2-1.0) 02/21/25 04:42 Neut # (Auto) 8.6 x10^3/uL (2.2-4.8) H 02/21/25 04:42 Lymph # (Auto) 1.3 X10^3/uL (1.3-2.9) 02/21/25 04:42 [place] # (Auto) 0.7 x10^3/uL (0.3-0.8) 02/21/25 04:42 Eos # (Auto) 0.3 x10^3/uL (0.0-0.2) H 02/21/25 04:42 Baso # (Auto) 0.0 X10^3/uL (0.0-0.1) 02/21/25 04:42 Absolute Nucleated RBC 0.3 /100WBC 02/21/25 04:42 Total Counted 100 02/19/25 07:21 Neutrophils % (Manual) 72 % (39-76) 02/19/25 07:21 Band Neutrophils % 3 % (0-10) 02/19/25 07:21 Lymphocytes % (Manual) 16 % (13-43) 02/19/25 07:21 Monocytes % (Manual) 3 % (4-9) L 02/19/25 07:21 Eosinophils % (Manual) 6 % (0-6) 02/19/25 07:21 Plt Morphology Comment Normal (NORMAL) 02/19/25 07:21 RBC Morphology Abnormal (NORMAL) A 02/19/25 07:21 Anisocytosis Slight A 02/19/25 07:21 Sodium 141 mmol/L (136-145) 02/21/25 04:42 Corrected Sodium 142 mmol/L (136-145) 02/21/25 04:42 Potassium 3.9 mmol/L (3.5-5.1) 02/21/25 04:42 Chloride 113 mmol/L (98-107) H 02/21/25 04:42 Carbon Dioxide 14.1 mmol/L (21-32) L* 02/21/25 04:42 BUN 12 mg/dL (7-18) 02/21/25 04:42 Creatinine 1.90 mg/dL (0.55-1.02) H 02/21/25 04:42 Est GFR (MDRD) Af Amer 34 (>60) L 02/21/25 04:42 Est GFR (MDRD) Non-Af 28 (>60) L 02/21/25 04:42 Glucose 128 mg/dL (65-99) H 02/21/25 04:42 Calcium 8.1 mg/dL (8.5-10.1) L 02/21/25 04:42 Corrected Calcium 9.3 mg/dL (8.5-10.1) 02/21/25 04:42 Magnesium 2.6 mg/dL (2.0-2.9) 02/18/25 05:04 Total Bilirubin 0.80 mg/dL (0.2-1.0) 02/21/25 04:42 AST 25 Units/L (15-37) 02/21/25 04:42 ALT 36 Units/L (12-78) 02/21/25 04:42 Alkaline Phosphatase 87 Units/L (46-116) 02/21/25 04:42 Creatine Kinase 257 Units/L (26-192) H 02/12/25 15:40 Troponin I High Sens 9.0 ng/L (4.0-60.0) 02/12/25 15:40 Total Protein 6.8 g/dL (6.4-8.2) 02/21/25 04:42 Albumin 2.5 g/dL (3.4-5.0) L 02/21/25 04:42 Globulin 4.3 g/dL (2.5-4.5) 02/21/25 04:42 Albumin/Globulin Ratio 0.6 Ratio (1.1-2.1) L 02/21/25 04:42 Amylase 31 Units/L (25-115) 02/17/25 04:32 Lipase 178 Units/L (16-77) H 02/17/25 04:32 Specimen Type Catherized urine 02/12/25 16:05 Urine Color Yellow (YELLOW) 02/12/25 16:05 Urine Appearance Clear (CLEAR) 02/12/25 16:05 Urine pH 6.0 (5.0 - 8.0) 02/12/25 16:05 Ur Specific [place] 1.020 (1.000-1.030) 02/12/25 16:05 Urine Protein 3+ (NEGATIVE) 02/12/25 16:05 Urine Glucose (UA) 3+ (NEGATIVE) 02/12/25 16:05 Urine Ketones Negative (NEGATIVE) 02/12/25 16:05 Urine Blood 5+ (NEGATIVE) 02/12/25 16:05 Urine Nitrite Negative (NEGATIVE) 02/12/25 16:05 Urine Bilirubin Negative (NEGATIVE) 02/12/25 16:05 Urine Urobilinogen Normal (NORMAL) 02/12/25 16:05 Ur Leukocyte Esterase Negative (NEGATIVE) 02/12/25 16:05 Urine RBC None seen /HPF (0-3) 02/12/25 16:05 Urine WBC None seen /HPF (0-5) 02/12/25 16:05 Ur Squamous Epith Cells Rare /HPF (NEGATIVE) 02/12/25 16:05 Amorphous Sediment Trace /HPF (NEGATIVE) 02/12/25 16:05 Urine Bacteria Trace /HPF (NEGATIVE) 02/12/25 16:05 Ur Culture Indicated? No/not indicated 02/12/25 16:05 Stl C. diff Tox B Gene Negative (NEGATIVE) 02/16/25 09:45 Stl C. diff [id number] Presumptive negative (NEGATIVE) 02/16/25 09:45 Urine Opiates Screen Positive (NEG=<300) A 02/12/25 16:05 Urine Methadone Screen Negative (NEG=<300) 02/12/25 16:05 Ur Barbiturates Screen Negative (NEG=<200) 02/12/25 16:05 Ur Phencyclidine Scrn Negative (NEG=<25) 02/12/25 16:05 Ur Amphetamines Screen Negative (NEG=<1000) 02/12/25 16:05 U Benzodiazepines Scrn Negative (NEG=<200) 02/12/25 16:05 Urine Cocaine Screen Negative (NEG=<300) 02/12/25 16:05 U Marijuana (THC) Screen Negative (NEG=<50) 02/12/25 16:05 Plan (1) Acute pancreatitis: Status: Acute Qualifiers: Acute pancreatitis complication: unspecified Pancreatitis type: other Qualified Code(s): K85.80 - Other acute pancreatitis without necrosis or infection (2) Nausea vomiting and diarrhea: Status: Acute (3) Acute on chronic renal insufficiency: Status: Acute (4) Acute hypokalemia: Status: Acute (5) Acute hypernatremia: Status: Acute (6) Breast cancer metastasized to bone: Status: Chronic Qualifiers: Laterality: unspecified laterality Qualified Code(s): C50.919 - Malignant neoplasm of unspecified site of unspecified female breast; C79.51 - Secondary malignant neoplasm of bone (7) Polypharmacy: Status: Acute (8) Anemia: Status: Chronic Qualifiers: Anemia type: unspecified type Qualified Code(s): D64.9 - Anemia, unspecified (9) HTN (hypertension): Status: Chronic Qualifiers: Hypertension type: primary hypertension Qualified Code(s): I10 - Essential (primary) hypertension
[2025-02-21] MEDS: IMODIUM CAP 2 MG PO PRN (13:33)
[2025-02-21] MEDS: VISBIOME PROBIOTIC CAP 112.5 B or equivalent PO SCH (13:37)
[2025-02-21 15:21] LABS: COR NA(FOR HYPERGLY) 134.0 mmol/L (136-145); CREATININE 1.69 mg/dL (0.55-1.02); eGFR NON BLACK RACES 32.0 (>60)
[2025-02-21 16:06] VITALS: BP 119/60; PULSE 113; RESP 20; TEMP 97.4; O2SAT 100
[2025-02-21] MEDS: K-DUR TAB 20 MEQ PO SCH (16:25)
[2025-02-21] MEDS ORDERED: COZAAR ONE (16:56)
--- NOTE | 2025-02-21 20:19 | DR.CONSULT ---
CONSULT Consultation for Day of: Date: 02/21/25 Chief Complaint Chief Complaint: 4-year-old female with known breast cancer metastatic to the bones who has been receiving radiation therapy. Initial diagnosis made several years ago and patient had bilateral mastectomy patient admitted recently for pneumonia. Admitted with change in mental status noted to be severely dehydrated and hypernatremic and hyperchloremic as well as hypokalemia patient has been receiving hydration and he is much clear regards to mental status. CT scan of the head shows no obvious acute findings but there is some small vessel vascular disease. Patient's mental status now clear patient however has been having vomiting CT scan of the abdomen shows possible mild distal pancreatitis although amylase and lipase are normal. No other complaints of abdominal pain. On exam patient has a benign abdomen. Allergies Allergies Allergy/AdvReac Type Severity Reaction Status Date / Time ceftriaxone (From Rocephin) Allergy Verified 02/12/25 19:22 Penicillins Allergy Verified 02/12/25 19:22 History of Present Illness History of Present Illness: as above Past Medical History Past Medical History: Anxiety, Depression, Dyslipidemia, Hypertension and Cancer (Metastatic breast) Past Surgical History Surgical History: Mastectomy Family History Family Medical History: Cancer Social History Does patient currently use any type of tobacco product: No Have you used tobacco products in the last 12 months: No Type of Tobacco Use: None Does any household member use tobacco: No Alcohol Use: None Drug Use: Prescription Drugs Medications Home Medications: ceftriaxone (From Rocephin) Allergy (Verified 02/12/25 19:22) Penicillins Allergy (Verified 02/12/25 19:22) CONTINUE taking the following medications abemaciclib 150 mg tablet (Verzenio) 150 mg PO QDAY 02/12/25 [History] celecoxib 200 mg capsule 200 mg PO BID 02/12/25 [History] cetirizine 10 mg tablet 10 mg PO QDAY 02/12/25 [History] duloxetine 60 mg capsule,delayed release 120 mg PO QDAY 02/12/25 [History] lorazepam 1 mg tablet 1 mg PO BID 02/12/25 [History] morphine 30 mg tablet,extended release 30 mg PO TID 02/12/25 [History] oxybutynin chloride 10 mg tablet,extended release 24 hr 10 mg PO QDAY 02/12/25 [History] oxycodone-acetaminophen 10 mg-325 mg tablet 1 tab PO QID PRN 02/12/25 [History] promethazine 25 mg tablet 25 mg PO Q8H PRN 02/12/25 [History] quetiapine 400 mg tablet,extended release 24 hr 400 mg PO QPM 02/12/25 [History] tizanidine 4 mg tablet 4 mg PO BID 02/12/25 [History] zolpidem 12.5 mg tablet,extended release,multiphase 12.5 mg PO QPM PRN 02/12/25 [History] New Prescriptions losartan 50 mg tablet 50 mg PO DAILY 30 days #30 tabs 02/19/25 [Rx] potassium chloride 10 mEq capsule,extended release 10 meq PO BID #14 caps 02/21/25 [Rx] Review of Systems Constitutional: See HPI Eyes: No Symptoms Reported ENT: No Symptoms Reported Respiratory: No Symptoms Reported Cardiovascular: No Symptoms Reported Gastrointestinal: See HPI Genitourinary: No Symptoms Reported Musculoskeletal: No Symptoms Reported Skin: No Symptoms Reported Neurological: See HPI Physical Exam Vital Signs: Vital Signs Temperature 97.4 F Pulse Rate [Left Radial] 113 Respiratory Rate 20 Blood Pressure [Right Arm] 119/60 O2 Sat by Pulse Oximetry 100 Oriented: Normal, Person and Place Eyes: Normal Ear: Normal Nose: Normal Throat: Normal Respiratory: Clear Throughout Cardiovascular: Normal : Normal Auscultation: Bowel Sounds: Normal Palpation: Normal Tenderness: Normal (No tenderness of abdomen) Skin: Normal Musculoskeletal: Normal Psychiatric: Normal (Markedly improved from admission) Mood Description: Calm Affect: Normal Speech Pattern: Clear and Appropriate Plan (1) Acute pancreatitis: Status: Acute Qualifiers: Pancreatitis type: other Acute pancreatitis complication: unspecified Qualified Code(s): K85.80 - Other acute pancreatitis without necrosis or infection Plan: CT scans suggest this but normal amylase and lipase and normal abdominal exam (2) Nausea vomiting and diarrhea: Status: Acute Plan: Benign abdomen with essentially negative CT scan set for the above findings. Will plan esophagoduodenoscopy (3) Acute on chronic renal insufficiency: Status: Acute Plan: Corrected with hydration (4) Acute hypokalemia: Status: Acute Plan: Corrected with hydration and replacement of potassium (5) Acute hypernatremia: Status: Acute Plan: Status post fluid administration and hydration (6) Breast cancer metastasized to bone: Status: Chronic Qualifiers: Laterality: unspecified laterality Qualified Code(s): C50.919 - Malignant neoplasm of unspecified site of unspecified female breast; C79.51 - Secondary malignant neoplasm of bone Plan: Patient metastatic breast cancer to bone. Receiving radiation therapy (7) Polypharmacy: Status: Acute Plan: Per medicine service (8) Anemia: Status: Chronic Qualifiers: Anemia type: unspecified type Qualified Code(s): D64.9 - Anemia, unspecified Plan: Stable hemoglobin (9) HTN (hypertension): Status: Chronic Qualifiers: Hypertension type: primary hypertension Qualified Code(s): I10 - Essential (primary) hypertension Plan: Begin and continue home medications
--- NOTE | 2025-02-21 20:25 | NOTE.SOAP ---
Soap Note Note for Day of Date of Exam: 02/21/25 Subjective Data Subjective Data: Patient stable and was discharged by the medicine service. With plans for follow-up to see me in the office to plan elective EGD. Objective Data Temperature: 97.4 F Pulse Rate: 113 Respiratory Rate: 20 Blood Pressure: 119/60 O2 Sat by Pulse Oximetry: 100 Objective Data: Patient not physically seen by me. Assessment Assessment: Vomiting with normal CT scan of the abdomen. Plan Plan: Patient to follow-up with me and plan elective EGD
== END 2025-02-21 17:15 | disposition home health service (06) | DRG 439 ==
LOC: ER 15:11 → MED/SURG 15:11 → OBSVTOIN 23:25 → MED/SURG 02-13 00:12
PROVIDERS: ADMIT Family Medicine; ATTEND Internal Medicine
DX: R06.02 Shortness of breath; R41.82 Altered mental status, unspecified; N18.9 Chronic kidney disease, unspecified; E87.6 Hypokalemia; R11.2 Nausea with vomiting, unspecified; R44.1 Visual hallucinations; R74.8 Abnormal levels of other serum enzymes; R94.4 Abnormal results of kidney function studies; Z92.3 Personal history of irradiation; C50.919 Malignant neoplasm of unspecified site of unspecified female breast; Z91.81 History of falling; R73.09 Other abnormal glucose; Z90.13 Acquired absence of bilateral breasts and nipples; R00.0 Tachycardia, unspecified; R94.31 Abnormal electrocardiogram [ECG] [EKG]; K85.80 Other acute pancreatitis without necrosis or infection; R79.89 Other specified abnormal findings of blood chemistry; Z79.899 Other long term (current) drug therapy; R19.7 Diarrhea, unspecified; C79.51 Secondary malignant neoplasm of bone; D64.89 Other specified anemias; F11.90 Opioid use, unspecified, uncomplicated; I12.9 Hypertensive chronic kidney disease with stage 1 through stage 4 chronic kidney disease, or unspecified chronic kidney disease; E87.0 Hyperosmolality and hypernatremia; F41.8 Other specified anxiety disorders; N17.8 Other acute kidney failure